=== PATIENT | male | born 1970 | race Two or more races ===

== ENCOUNTER 2022-01-13 23:09 | Observation (INO) | payer MEDICAID, SELFPAY ==
--- NOTE | 2022-01-13 23:04 | ECG_ITS ---
APPROVED REPORT Exam: Resting ECG HR:124 bpm ECG Measurements Heart Rate 124 AXES DE 151 P 72 QRSd 93 QRS 138 QT 295 T 55 QTc 369 Conclusion SINUS TACHYCARDIA WITH FREQUENT VENTRICULAR PREMATURE COMPLEXES INDETERMINATE AXIS LEFT POSTERIOR FASCICULAR BLOCK [QRS AXIS > 109, INFERIOR Q] ABNORMAL ECG UNCONFIRMED REPORT Electronically signed by : Paramjit Ponce MD 01/14/2022 21:01:40
[2022-01-13 23:09] VITALS: BP 141/62; PULSE 129; RESP 20; TEMP 37.5; O2SAT 96; BMI 47.4
[2022-01-13 23:12] VITALS: BMI 47.4
--- NOTE | 2022-01-13 23:19 | XR_ITS ---
PROCEDURE INFORMATION: Exam: XR Chest Exam date and time: 01/13/2022 11:26 PM Age: 51 years old Clinical indication: Sternal or substernal pain; Additional info: Cp TECHNIQUE: Imaging protocol: Radiologic exam of the chest. Views: 2 views. COMPARISON: No relevant prior studies available. FINDINGS: Lungs: Unremarkable. No consolidation. Pleural spaces: Unremarkable. No pleural effusion. No pneumothorax. Heart/Mediastinum: Unremarkable. No cardiomegaly. Bones/joints: Unremarkable. IMPRESSION: No acute cardiopulmonary abnormality.
[2022-01-13 23:25] LABS: Coronavirus 19, PCR Not Detected (NotDetected); Influenza A, PCR Not Detected (NotDetected); Influenza B, PCR Not Detected (NotDetected)
--- NOTE | 2022-01-13 23:27 | PC.NURSE ---
PT RATES CHEST PRESSURE 6/10- NITRO SL GIVEN ORDERED. VS PRIOR TO ADMINISTRATION BP 141/62 PULSE 131 SP02 96%
[2022-01-13 23:29] LABS: Basophils # 0.1 K/mm3 (0-0.2); Basophils % 0.5 % (0.1-2.0); Eosinophils # 0.3 K/mm3 (0.0-0.4); Eosinophils % 1.4 % (0.1-12.0); Hematocrit 43.5 % (42.0-52.0); Hemoglobin 14.9 g/dL (14.1-18.0); Lymphocytes % 9.8 % (10-50); Mean Corpuscular HGB Conc 34.3 g/dL (31.8-35.4); Mean Corpuscular Hemoglobin 30.5 pg (27.0-31.2); Mean Corpuscular Volume 88.9 fl (80-94); Mean Platelet Volume 7.6 fl (7.4-10.4); Neutrophils # 16.9 K/mm3 (1.8-7.8); Neutrophils % 83.4 % (37.0-80.0); Platelet Count 271 K/mm3 (142-424); White Blood Count 20.3 K/mm3 (4.8-10.8)
--- NOTE | 2022-01-13 23:30 | PC.NURSE ---
PT STATES NITRO SL DID RELIEVE HIS CHEST PRESSURE. AWARE.
[2022-01-13 23:32] LABS: Chloride 100 mmol/L (98-107); Sodium 134 mmol/L (136-145)
--- NOTE | 2022-01-13 23:34 | HMH.EDCP ---
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 insulin use: unspecified residential insulin use status Diabetes mellitus complication status: with other specified complication Qualified Code(s): E11.69 - Type 2 diabetes mellitus with other specified complication Obesity Qualifiers: Obesity type: due to excess calories Obesity classification: adult class 3 (BMI >= 40) Serious obesity comorbidity presence: with serious comorbidity Body mass index: BMI 45.0-49.9 Qualified Code(s): E66.01 - Morbid (severe) obesity due to excess calories; Z68.42 - Body mass index [BMI] 45.0-49.9, adult Disposition: Admitted As Inpatient Condition on Discharge: Serious - Critical Care Critical Care Time: No Attestation: On , the high probability of a clinically significant, sudden or life threatening deterioration of the following system(s) required my full and direct attention, intervention and personal management. The time I documented below is in addition to time spent performing reported procedures but includes the following listed in this critical care notation. Medical Decision Making - Medical Records Medical records reviewed: Yes: I reviewed the patient's medical records. - Otto Inquiry Pt receiving controlled substance: No Vital Signs: 01/13/22 23:09 01/13/22 23:50 Temperature 99.5 F Temperature Source Oral Pulse Rate 124 H Pulse Rate [Right] 129 H Respiratory Rate 20 Blood Pressure 109/62 L Blood Pressure [Right Arm] 141/62 H Blood Pressure Mean 80 Blood Pressure Mean [Right Arm] 88 02 Sat by Pulse Oximetry 96 93 L - Lab Data Lab results reviewed: Yes: I reviewed the patient's lab results. Lab Results 01/13/22 23:12: WBC 20.3 H*, RBC 4.90, Hgb 14.9, Hct 43.5, MCV 88.9, MCH 30.5, MCHC 34.3, RDW 13.0, Plt Count 271, MPV 7.6, Neut % (Auto) 83.4 H, Lymph % (Auto) 9.8 L, [place] % (Auto) 5.0, Eos % (Auto) 1.4, Baso % (Auto) 0.5, Neut # (Auto) 16.9 H, Lymph # (Auto) 2.0, [place] # (Auto) 1.0, Eos # (Auto) 0.3, Baso # (Auto) 0.1 01/13/22 23:12: Sodium 134 L, Potassium 4.0, Chloride 100, Carbon Dioxide 25, Anion Gap 13.0, BUN 11, Creatinine 0.50 L, Estimated Creat Clear 169, Estimated GFR 175, Est GFR ( Amer) 212, Glucose 238 H, Calcium 9.7, Troponin I < 0.01, C-Reactive Protein 21.3 H 01/13/22 23:12: Free T4 1.11 01/13/22 23:12: Lactate 2.7 H 01/13/22 23:12: NT-Pro-B Natriuret Pep 56.3 01/13/22 23:22: SARS-CoV-2 (PCR) Not detected, Influenza A Untype (PCR) Not detected, Influenza Type B (PCR) Not detected 01/13/22 23:41: Urine Color Yellow, Urine Appearance Clear, Urine pH 5.0, Ur Specific [place] 1.020, Urine Protein Negative, Urine Glucose (UA) Negative, Urine Ketones Trace, Urine Blood Negative, Urine Nitrate Negative, Urine Bilirubin Negative, Urine Urobilinogen 0.2, Ur Leukocyte Esterase Negative Result diagrams: 01/13/22 23:12 01/13/22 23:12 Orders (Tests/Meds): ED MEDICATIONS Generic Name Dose Route Start Last Admin Trade Name Freq PRN Reason Stop Dose Admin Sodium Chloride 1,000 mls @ 999 mls/hr 01/13/22 23:45 01/13/22 23:43 Sod Chlor 0.9% 1000ml Bag IV 01/14/22 00:45 999 mls/hr .[id number] JULIANA Administration Discontinued Medications Generic Name Dose Route Start Last Admin Trade Name Freq PRN Reason Stop Dose Admin Aspirin 324 mg 01/13/22 23:20 01/13/22 23:26 Aspirin 81mg Chewable Tablet PO 01/13/22 23:21 324 mg ONCE ONE Administration Nitroglycerin 0.4 mg 01/13/22 23:20 01/13/22 23:26 Nitroglycerin 0.4mg Sl Tablet SL 01/13/22 23:21 1 tab ONCE ONE Administration Nitroglycerin 1 gm 01/13/22 23:31 01/13/22 23:33 Nitroglycerin 1 Gm Ointment TD 01/13/22 23:32 1 gm ONCE ONE Administration ORDERS
[2022-01-13 23:35] LABS: Blood Urea Nitrogen 11 mg/dl (9-20); Creatinine Clearance Estimated 169 mL/min (50-200); Estimated Glomerular Filt Rate 175 ml/min (>60); GFR (African American) 212 ML/MIN (>60)
[2022-01-13 23:36] LABS: Calcium 9.7 mg/dl (8.4-10.2); Carbon Dioxide 25 mmol/L (22.0-30.0); Glucose 238 mg/dl (74-100)
[2022-01-13 23:38] LABS: Lactic Acid 2.7 mmol/L (0.7-2.1)
[2022-01-13 23:39] LABS: MANUAL DIFFERENTIAL MANUAL DIFFERENTIAL (MANUAL DIFF)
[2022-01-13 23:41] LABS: C-Reactive Protein 21.3 mg/L (0-4)
[2022-01-13 23:50] VITALS: BP 109/62; PULSE 124; O2SAT 93
[2022-01-13 23:51] LABS: Troponin I < 0.01 ng/ml (0.00-0.034)
[2022-01-13 23:53] LABS: Microscopic, Urine URINE MICROSCOPIC (MICROSCOPIC)
[2022-01-13 23:55] LABS: Free T4 (Free Thyroxine) 1.11 ng/dl (0.78-2.19); NT Pro Brain Natriuretic Pep. 56.3 pg/mL (0-125)
[2022-01-13 23:55] LABS: Appearance,Urine CLEAR (Clear); Bilirubin,Urine Negative (Negative); Blood, Urine Negative (Negative); Color,Urine YELLOW (Yellow); Glucose,Urine (UA) Negative (Negative); Ketones,Urine TRACE (Negative); Leukocyte Esterase,Urine Negative (Negative); Nitrate,Urine Negative (Negative); Protein,Urine Negative (Negative); Urobilinogen,Urine 0.2 EU/dl (0.2)
[2022-01-14] VITALS (27 sets, daily range): BP systolic 99–134; BP diastolic 55–109; PULSE 76–123; RESP 12–24; TEMP 36.4–37.6; O2SAT 90–97; BMI 47.0
[2022-01-14 00:10] LABS: Thyroid Stimulating Hormone 1.32 uIU/mL (0.465-4.68)
[2022-01-14 00:18] LABS: Procalcitonin 0.084 ng/mL (0.0-2.0)
[2022-01-14 00:18] LABS: WBC,Urine Occasional #/hpf (0-3)
[2022-01-14 00:19] LABS: Bacteria,Urine Trace /lpf
[2022-01-14 00:27] LABS: Hypochromasia 1+; Lymphocytes % 7 % (10-50); Monocytes % 5 % (2-9); Neutrophils % 88 % (42-76); Platelet Estimate Normal; Total Cells Counted 100
[2022-01-14 00:32] LABS: Erythrocyte Sedimentation Rate 19 mm/hr (0-20)
[2022-01-14 00:42] LABS: Bilirubin,Unconjugated 0.7 mg/dL (0.0-1.1)
[2022-01-14 00:43] LABS: Alanine Aminotransferase 60 U/L (12-78); Albumin Level 4.6 g/dl (3.5-5.0); Alkaline Phosphatase 106 U/L (38-126); Aspartate Amino Transferase 49 U/L (17-59); Bilirubin,Direct 0.3 mg/dl (0.0-0.4); Bilirubin,Indirect 0.8 mg/dL (0.0-0.9); Bilirubin,Total 1.1 mg/dl (0.2-1.3); Total Protein,Serum 7.7 g/dl (6.3-8.2)
[2022-01-14 02:21] LABS: Reflex Lactic Add Lactic Reflex
[2022-01-14 02:42] LABS: Lactic Acid Follow Up (RFLX 1) 1.7 mmol/L (0.7-2.1)
[2022-01-14 03:03] LABS: Troponin I < 0.01 ng/ml (0.00-0.034)
--- NOTE | 2022-01-14 06:20 | PC.NURSE ---
Pt has rested well since admission. Denies any cp or soa at this time. VSS. Pt ambulating to the bathroom without difficulty. No fever. No acute distress or changes noted at this time. Will continue to monitor.
[2022-01-14 06:32] LABS: Basophils # 0.1 K/mm3 (0-0.2); Basophils % 0.4 % (0.1-2.0); Eosinophils # 0.1 K/mm3 (0.0-0.4); Eosinophils % 0.5 % (0.1-12.0); Hematocrit 37.6 % (42.0-52.0); Lymphocytes # 3.2 K/mm3 (0.7-4.5); Lymphocytes % 18.4 % (10-50); Mean Corpuscular HGB Conc 34.6 g/dL (31.8-35.4); Mean Corpuscular Hemoglobin 31.1 pg (27.0-31.2); Monocytes % 5.6 % (1.7-9.3); Neutrophils # 13.2 K/mm3 (1.8-7.8); Neutrophils % 75.1 % (37.0-80.0); Platelet Count 237 K/mm3 (142-424); Red Blood Count 4.17 M/mm3 (4.60-6.20); Red Cell Distribution Width 13.2 % (11.5-17.5); White Blood Count 17.6 K/mm3 (4.8-10.8)
[2022-01-14 06:40] LABS: INR 1.13 (0.9-1.1); Prothrombin Time 12.7 seconds (10.1-12.5)
[2022-01-14 06:43] LABS: Anion Gap 9.6 mEq/L (5-15); Blood Urea Nitrogen 9 mg/dl (9-20); Calcium 8.2 mg/dl (8.4-10.2); Carbon Dioxide 26 mmol/L (22.0-30.0); Chloride 104 mmol/L (98-107); Creatinine Clearance Estimated 169 mL/min (50-200); Estimated Glomerular Filt Rate 175 ml/min (>60); GFR (African American) 212 ML/MIN (>60); Glucose 204 mg/dl (74-100); Potassium 3.6 mmoL/L (3.5-5.1); Sodium 136 mmol/L (136-145)
[2022-01-14 07:05] LABS: POC Glucose,Bedside 215 (70-110)
[2022-01-14 07:08] LABS: Troponin I < 0.01 ng/ml (0.00-0.034)
--- NOTE | 2022-01-14 07:40 | HMH.PHAINT ---
MEDICATION RECONCILIATION COMPLETED ON PATIENT USING EXTERNAL FILL HISTORY FROM PHARMACY. -JIM PANDA, GALLITOD
--- NOTE | 2022-01-14 07:41 | HMH.PHAVTE ---
[facility] Pharmacy VTE Monitoring - Patient Demographics Admission date: 01/13/22 Report Date: 01/14/22 Time: 07:41 Allergies/Adverse Reactions: Patient Allergies methylprednisolone [From Solu-Medrol] Adverse Reaction (Verified 01/13/22 23:19) Height: 1.73 m Weight: 140.89 kg Patient Problems: Current Active Problems Chest pain (Acute) Diabetes mellitus (Acute) Groin abscess (Acute) Severe sepsis with acute organ dysfunction (Acute) Obesity (Acute) Tobacco use (Acute) - VTE Risk Labs: VTE Related Lab Results Hgb 13.0 g/dL (14.1-18.0) L D 01/14/22 05:40 Hct 37.6 % (42.0-52.0) L 01/14/22 05:40 Plt Count 237 K/mm3 (142-424) 01/14/22 05:40 PT 12.7 seconds (10.1-12.5) H 01/14/22 05:40 INR 1.13 (0.9-1.1) H 01/14/22 05:40 BUN 9 mg/dl (9-20) 01/14/22 05:40 Creatinine 0.50 mg/dl (0.66-1.25) L 01/14/22 05:40 Estimated Creat Clear 169 mL/min (50-200) 01/14/22 05:40 Was VTE Risk Assessment Performed: Yes VTE Score: 4 VTE Risk Level: Low Risk - Prophylaxis VTE Prophylaxis Ordered?: Yes Types of VTE Prophylaxis: TEDS Knee High Location of Applied Device: Bilateral Lower Extremeties
--- NOTE | 2022-01-14 08:00 | CA_ITS ---
APPROVED REPORT EXAM: Comprehensive 2D, Doppler, and color-flow Echocardiogram Brake Drum Lathe Operator: Linda Hearn RT(R) Ht: 5 ft 8 in Wt: 315lbs BSA: 2.48 BP: 109/62 mmHg Indications: severe sepsis, obesity, diabetes, smoker, CP, SOB, HTN Echo Enhancing Agent Indication: Endocardial border delineation Agent(s) / Amount(s) Used: Definity 2 cc 2D Dimensions LVOT 2.18 cm (M/F) 1.5-2.5 M-Mode Dimensions RVDd 3.25 cm (0.9-2.6) LA Diam 2.91 cm (1.9-4.0) LVDd 5.11 cm (3.5-5.7) Ao Diam 3.26 cm (2.0-3.7) LVDs 3.72 cm (3.5-5.7) IVSd 1.00 cm (0.6-1.1) PWd 0.86 cm (0.6-1.1) EF (Teich) 52.70% FS 27.20% EDV (Teich) 124.40 mL ESV (Teich) 58.90 mL LV Diastology E Decel Time 160.00 (160-240 msec) E/A Ratio 0.7 MED E' 6.50 (< 7 cm/sec) E'/MED E' Ratio 7.57 (>14) LAT E' 7.10 (<10 cm/sec) E/LAT E' Ratio 6.93 (>14) Mitral Valve MV E Max Avtar. 49.00 (40-130 cm/s) MV A Velocity 74.00 (40-130 cm/s) E/A Ratio 0.66 MV Decel. Time 160.00 (160-240 ms) MV PHT 47.00 ms Left Ventricle Technically difficult study because of the patient factors and poor acoustic windows. Definity contrast was utilized to delineate the endocardial surfaces. Left atrium is mildly enlarged, left ventricle is normal size mild concentric left ventricular hypertrophy, estimated ejection fraction 50% with no obvious regional wall motion abnormality, grade 1 diastolic dysfunction seen without tissue Doppler evidence of raise left atrial pressure, there is no left ventricular thrombus seen. Right Ventricle Right atrium and right ventricle are mildly enlarged with normal contractility. Aortic Valve Aortic valve is minimally thickened and fibrosed there is no aortic stenosis or aortic insufficiency. Mitral Valve Mitral valve grossly normal, there is trace mitral regurgitation. Tricuspid Valve Tricuspid valve is grossly normal, there is trace tricuspid regurgitation, tricuspid regurgitation jet velocity is inadequate for calculation of the right ventricular systolic pressure. Pulmonic Valve Pulmonic valve is poorly visualized. Great Vessels Aortic root is normal size. Inferior vena cava is poorly visualized. Pericardium No significant pericardial effusion noted. Conclusion 1. Technically difficult study because of the patient factors and poor acoustic windows, Definity contrast was utilized to delineate the endocardial surfaces, normal left ventricular size mild concentric left ventricular hypertrophy, estimated ejection fraction approximately 50% with no regional wall motion abnormality, there is no left ventricular thrombus seen, grade 1 diastolic dysfunction seen without tissue Doppler evidence of raise left atrial pressure. 2. Trace mitral and tricuspid regurgitation. 3. No significant pericardial effusion. 4. Inferior vena cava is poorly visualized. Electronically signed by : Haroon Sawyer MD 01/15/2022 06:05:51
--- NOTE | 2022-01-14 08:34 | PC.NURSE ---
I called to inform surgery of consult; spoke with Geena
--- NOTE | 2022-01-14 08:38 | PC.NURSE ---
notified cardiology of consult
--- NOTE | 2022-01-14 08:42 | HMH.HP ---
*Admission Date: 01/13/22 *Chief complaint: Chest pain [facility] History Medical History: Reports:: Diabetes Mellitus Type 2 Denies:: Cancer, Diabetes Mellitus Type 1, MRSA *Have you ever received a pneumonia vaccine?: No *Have you received a flu vaccine this season?: Yes Other Surgeries: Yes: Hernia Repair Amputation: No - *Social History Smoking Status: Current every day smoker # Packs/Day (cigarettes): 1 Alcohol Intake: never *Occupational Status:: employed Housing: house *Travel in the last 8 weeks: None Family Hx:: Diabetes, Heart Attack Review of Systems - *Neurologic Denies localized weakness, Denies headache(s) Meds Home Medications Medication Instructions Recorded Confirmed Type Furosemide [Furosemide 40MG tAB*] 40 mg PO DAILY 01/13/22 01/13/22 History Insulin Glargine,Hum.rec.anlog 20 units SQ 01/13/22 01/13/22 History [Lantus Solostar 100 Units/mL 3mL flexpen] Metformin HCl [Metformin 1000mg 1,000 mg PO BID 01/13/22 01/13/22 History Tablets] Omeprazole [Omeprazole 20mg 20 mg PO DAILY 01/13/22 01/13/22 History Capsule] Simvastatin 20 mg PO HS 01/13/22 01/14/22 History lisinopriL [Lisinopril] 10 mg PO DAILY 01/13/22 01/13/22 History Allergies Allergy/AdvReac Type Severity Reaction Status Date / Time methylprednisolone AdvReac Verified 01/13/22 23:19 [From Solu-Medrol] Exam Vital signs and Labs for Last 24 Hours: Temp Pulse Resp BP Pulse Ox 99.6 F 100 H 24 118/76 91 L 01/14/22 03:43 01/14/22 03:43 01/14/22 03:43 01/14/22 03:43 01/14/22 03:43 Laboratory Results - last 24 hr 01/13/22 23:12: WBC 20.3 H*, RBC 4.90, Hgb 14.9, Hct 43.5, MCV 88.9, MCH 30.5, MCHC 34.3, RDW 13.0, Plt Count 271, MPV 7.6, Neut % (Auto) 83.4 H, Lymph % (Auto) 9.8 L, [place] % (Auto) 5.0, Eos % (Auto) 1.4, Baso % (Auto) 0.5, Neut # (Auto) 16.9 H, Lymph # (Auto) 2.0, [place] # (Auto) 1.0, Eos # (Auto) 0.3, Baso # (Auto) 0.1, Total Counted 100, Neutrophils % (Manual) 88 H, Lymphocytes % (Manual) 7 L, Monocytes % (Manual) 5, Platelet Estimate Normal, Hypochromasia 1+, ESR 19 01/13/22 23:12: Sodium 134 L, Potassium 4.0, Chloride 100, Carbon Dioxide 25, Anion Gap 13.0, BUN 11, Creatinine 0.50 L, Estimated Creat Clear 169, Estimated GFR 175, Est GFR ( Amer) 212, Glucose 238 H, Calcium 9.7, Troponin I < 0.01, C-Reactive Protein 21.3 H, Procalcitonin 0.084, TSH 1.32 01/13/22 23:12: Free T4 1.11 01/13/22 23:12: Lactate 2.7 H 01/13/22 23:12: Hemoglobin A1c 9.0 H 01/13/22 23:12: NT-Pro-B Natriuret Pep 56.3 01/13/22 23:12: Total Bilirubin 1.1, Direct Bilirubin 0.3, Conjugated Bilirubin 0.0, Indirect Bilirubin 0.8, Unconjugated Bilirubin 0.7, AST 49, ALT 60, Alkaline Phosphatase 106, Total Protein 7.7, Albumin 4.6 01/13/22 23:22: SARS-CoV-2 (PCR) Not detected, Influenza A Untype (PCR) Not detected, Influenza Type B (PCR) Not detected 01/13/22 23:41: Urine Color Yellow, Urine Appearance Clear, Urine pH 5.0, Ur Specific [place] 1.020, Urine Protein Negative, Urine Glucose (UA) Negative, Urine Ketones Trace, Urine Blood Negative, Urine Nitrate Negative, Urine Bilirubin Negative, Urine Urobilinogen 0.2, Ur Leukocyte Esterase Negative, Urine WBC Occasional, Ur Squamous Epith Cells 3-5, Urine Bacteria Trace 01/14/22 02:30: Troponin I < 0.01 01/14/22 02:30: Lactate 1.7 01/14/22 05:40: Troponin I < 0.01 01/14/22 05:40: WBC 17.6 H, RBC 4.17 L, Hgb 13.0 L D, Hct 37.6 L, MCV 90.0, MCH 31.1, MCHC 34.6, RDW 13.2, Plt Count 237, MPV 8.0, Neut % (Auto) 75.1, Lymph % (Auto) 18.4, [place] % (Auto) 5.6, Eos % (Auto) 0.5, Baso % (Auto) 0.4, Neut # (Auto) 13.2 H, Lymph # (Auto) 3.2, [place] # (Auto) 1.0, Eos # (Auto) 0.1, Baso # (Auto) 0.1 01/14/22 05:40: PT 12.7 H, INR 1.13 H 01/14/22 05:40: Sodium 136, Potassium 3.6, Chloride 104, Carbon Dioxide 26, Anion Gap 9.6, BUN 9, Creatinine 0.50 L, Estimated Creat Clear 169, Estimated GFR 175, Est GFR ( Amer) 212, Glucose 204 H, Calcium 8.2 L 01/14/22 06:57: POC Glucose 215 H I & O
--- NOTE | 2022-01-14 08:58 | HMH.PHACONS ---
- Pharmacy Consult Date: 01/14/22 Time: 08:58 Referring provider: DR. RUFF Reason for Consult:: VANCOMYCIN DOSING Allergies and ADEs:: Allergies Allergy/AdvReac Type Severity Reaction Status Date / Time methylprednisolone AdvReac Verified 01/13/22 23:19 [From Solu-Medrol] Home Medications:: Home Medications Medication Instructions Recorded Confirmed Type Furosemide [Furosemide 40MG tAB*] 40 mg PO DAILY 01/13/22 01/13/22 History Insulin Glargine,Hum.rec.anlog 20 units SQ 01/13/22 01/13/22 History [Lantus Solostar 100 Units/mL 3mL flexpen] Metformin HCl [Metformin 1000mg 1,000 mg PO BID 01/13/22 01/13/22 History Tablets] Omeprazole [Omeprazole 20mg 20 mg PO DAILY 01/13/22 01/13/22 History Capsule] Simvastatin 20 mg PO HS 01/13/22 01/14/22 History lisinopriL [Lisinopril] 10 mg PO DAILY 01/13/22 01/13/22 History Height: 1.73 m Weight: 140.89 kg Laboratory Results:: Laboratory Results - last 24 hr 01/13/22 23:12: WBC 20.3 H*, RBC 4.90, Hgb 14.9, Hct 43.5, MCV 88.9, MCH 30.5, MCHC 34.3, RDW 13.0, Plt Count 271, MPV 7.6, Neut % (Auto) 83.4 H, Lymph % (Auto) 9.8 L, [place] % (Auto) 5.0, Eos % (Auto) 1.4, Baso % (Auto) 0.5, Neut # (Auto) 16.9 H, Lymph # (Auto) 2.0, [place] # (Auto) 1.0, Eos # (Auto) 0.3, Baso # (Auto) 0.1, Total Counted 100, Neutrophils % (Manual) 88 H, Lymphocytes % (Manual) 7 L, Monocytes % (Manual) 5, Platelet Estimate Normal, Hypochromasia 1+, ESR 19 01/13/22 23:12: Sodium 134 L, Potassium 4.0, Chloride 100, Carbon Dioxide 25, Anion Gap 13.0, BUN 11, Creatinine 0.50 L, Estimated Creat Clear 169, Estimated GFR 175, Est GFR ( Amer) 212, Glucose 238 H, Calcium 9.7, Troponin I < 0.01, C-Reactive Protein 21.3 H, Procalcitonin 0.084, TSH 1.32 01/13/22 23:12: Free T4 1.11 01/13/22 23:12: Lactate 2.7 H 01/13/22 23:12: Hemoglobin A1c 9.0 H 01/13/22 23:12: NT-Pro-B Natriuret Pep 56.3 01/13/22 23:12: Total Bilirubin 1.1, Direct Bilirubin 0.3, Conjugated Bilirubin 0.0, Indirect Bilirubin 0.8, Unconjugated Bilirubin 0.7, AST 49, ALT 60, Alkaline Phosphatase 106, Total Protein 7.7, Albumin 4.6 01/13/22 23:22: SARS-CoV-2 (PCR) Not detected, Influenza A Untype (PCR) Not detected, Influenza Type B (PCR) Not detected 01/13/22 23:41: Urine Color Yellow, Urine Appearance Clear, Urine pH 5.0, Ur Specific [place] 1.020, Urine Protein Negative, Urine Glucose (UA) Negative, Urine Ketones Trace, Urine Blood Negative, Urine Nitrate Negative, Urine Bilirubin Negative, Urine Urobilinogen 0.2, Ur Leukocyte Esterase Negative, Urine WBC Occasional, Ur Squamous Epith Cells 3-5, Urine Bacteria Trace 01/14/22 02:30: Troponin I < 0.01 01/14/22 02:30: Lactate 1.7 01/14/22 05:40: Troponin I < 0.01 01/14/22 05:40: WBC 17.6 H, RBC 4.17 L, Hgb 13.0 L D, Hct 37.6 L, MCV 90.0, MCH 31.1, MCHC 34.6, RDW 13.2, Plt Count 237, MPV 8.0, Neut % (Auto) 75.1, Lymph % (Auto) 18.4, [place] % (Auto) 5.6, Eos % (Auto) 0.5, Baso % (Auto) 0.4, Neut # (Auto) 13.2 H, Lymph # (Auto) 3.2, [place] # (Auto) 1.0, Eos # (Auto) 0.1, Baso # (Auto) 0.1 01/14/22 05:40: PT 12.7 H, INR 1.13 H 01/14/22 05:40: Sodium 136, Potassium 3.6, Chloride 104, Carbon Dioxide 26, Anion Gap 9.6, BUN 9, Creatinine 0.50 L, Estimated Creat Clear 169, Estimated GFR 175, Est GFR ( Amer) 212, Glucose 204 H, Calcium 8.2 L 01/14/22 06:57: POC Glucose 215 H Medical History: Reports:: Diabetes Mellitus Type 2 Denies:: Cancer, Diabetes Mellitus Type 1, MRSA Assessment and Plan - Assessment and plan all Dx Assessment and Plan for all problems:: Age: 51 yo Serum creatinine: 0.5 mg/dL Height: 68.1 Inches Weight (kg): 140 Assessment: IBW (kg): 68.63 Dosing wt(kg): 140 Estimated Creatinine clearance (ml/min): 130 Clearance limited to 130 ml/min to reduce risk of overdosing. CRCL method: Cockcroft and Gault using ibw(default). Drug selected: Vancomycin Loading dose (mg): 0 Vd (liters): 112.0 (factor used: 0.8 L/k
--- NOTE | 2022-01-14 10:23 | HMH.CNCARD ---
History of Present Illness Consult date: 01/14/22 Requesting physician: Manas Zamora Consult reason: chest pain Chief complaint: Left groin abscess, sepsis, atypical chest pain Additional Medical History:: Past Medical Hx DM HLD HTN History of present illness: 51 year old male with past medical hx as above presented to ED with complaint of fever of 101 at home, chest tightness, and a warm sensation across chest. Denied any soa. also requested boil to left inner thigh be looked at. Upon presentation EKG showed sinus tach with pvc at rate of 124 no evidence of acute ischemia. WBC was 20.3. Trops all negative, no further chest pain. chest x-ray negative for acute process. [facility] History Medical History: Reports:: Diabetes Mellitus Type 2, Hypertension Denies:: Cancer, Diabetes Mellitus Type 1, MRSA *Have you ever received a pneumonia vaccine?: No *Have you received a flu vaccine this season?: Yes Other Surgeries: Yes: Hernia Repair Amputation: No - *Social History Smoking Status: Current every day smoker # Packs/Day (cigarettes): 1 Alcohol Intake: never *Occupational Status:: employed Housing: house *Travel in the last 8 weeks: None Family Hx:: Diabetes, Heart Attack Meds Home Medications Medication Instructions Recorded Confirmed Type Furosemide [Furosemide 40MG tAB*] 40 mg PO DAILY 01/13/22 01/13/22 History Insulin Glargine,Hum.rec.anlog 20 units SQ 01/13/22 01/13/22 History [Lantus Solostar 100 Units/mL 3mL flexpen] Metformin HCl [Metformin 1000mg 1,000 mg PO BID 01/13/22 01/13/22 History Tablets] Omeprazole [Omeprazole 20mg 20 mg PO DAILY 01/13/22 01/13/22 History Capsule] Simvastatin 20 mg PO HS 01/13/22 01/14/22 History lisinopriL [Lisinopril] 10 mg PO DAILY 01/13/22 01/13/22 History Allergies Allergy/AdvReac Type Severity Reaction Status Date / Time methylprednisolone AdvReac Verified 01/13/22 23:19 [From Solu-Medrol] Exam Vital signs and Labs for Last 24 Hours: Temp Pulse Resp BP Pulse Ox 98.3 F 94 H 20 101/57 L 94 L 01/14/22 08:00 01/14/22 08:00 01/14/22 08:00 01/14/22 08:00 01/14/22 08:00 Laboratory Results - last 24 hr 01/13/22 23:12: WBC 20.3 H*, RBC 4.90, Hgb 14.9, Hct 43.5, MCV 88.9, MCH 30.5, MCHC 34.3, RDW 13.0, Plt Count 271, MPV 7.6, Neut % (Auto) 83.4 H, Lymph % (Auto) 9.8 L, [place] % (Auto) 5.0, Eos % (Auto) 1.4, Baso % (Auto) 0.5, Neut # (Auto) 16.9 H, Lymph # (Auto) 2.0, [place] # (Auto) 1.0, Eos # (Auto) 0.3, Baso # (Auto) 0.1, Total Counted 100, Neutrophils % (Manual) 88 H, Lymphocytes % (Manual) 7 L, Monocytes % (Manual) 5, Platelet Estimate Normal, Hypochromasia 1+, ESR 19 01/13/22 23:12: Sodium 134 L, Potassium 4.0, Chloride 100, Carbon Dioxide 25, Anion Gap 13.0, BUN 11, Creatinine 0.50 L, Estimated Creat Clear 169, Estimated GFR 175, Est GFR ( Amer) 212, Glucose 238 H, Calcium 9.7, Troponin I < 0.01, C-Reactive Protein 21.3 H, Procalcitonin 0.084, TSH 1.32 01/13/22 23:12: Free T4 1.11 01/13/22 23:12: Lactate 2.7 H 01/13/22 23:12: Hemoglobin A1c 9.0 H 01/13/22 23:12: NT-Pro-B Natriuret Pep 56.3 01/13/22 23:12: Total Bilirubin 1.1, Direct Bilirubin 0.3, Conjugated Bilirubin 0.0, Indirect Bilirubin 0.8, Unconjugated Bilirubin 0.7, AST 49, ALT 60, Alkaline Phosphatase 106, Total Protein 7.7, Albumin 4.6 01/13/22 23:22: SARS-CoV-2 (PCR) Not detected, Influenza A Untype (PCR) Not detected, Influenza Type B (PCR) Not detected 01/13/22 23:41: Urine Color Yellow, Urine Appearance Clear, Urine pH 5.0, Ur Specific [place] 1.020, Urine Protein Negative, Urine Glucose (UA) Negative, Urine Ketones Trace, Urine Blood Negative, Urine Nitrate Negative, Urine Bilirubin Negative, Urine Urobilinogen 0.2, Ur Leukocyte Esterase Negative, Urine WBC Occasional, Ur Squamous Epith Cells 3-5, Urine Bacteria Trace 01/14/22 02:30: Troponin I < 0.01 01/14/22 02:30: Lactate 1.7 01/14/22 05:40: Troponin I < 0.01 01/14/22 05:40: WBC 17.6 H, RBC 4.17 L,
[2022-01-14 11:34] LABS: POC Glucose,Bedside 230 (70-110)
--- NOTE | 2022-01-14 11:39 | HMH.GSCON ---
*Admission Date: 01/13/22 *Reason for consult:: Left medial thigh abscess *History of present illness: This is a 51-year-old gentleman seen in consultation Dr. Zamora for evaluation regarding a left medial thigh abscess. During evaluation for chest pain he noted a developing abscess along the left medial thigh. He states that over the past few days or so (the area) has gotten more tender and more swollen . Review of Systems - Constitutional Denies chills - Integumentary/Breasts Reports boil - *Neurologic Denies localized weakness, Denies headache(s) [facility] History Medical History: Reports:: Diabetes Mellitus Type 2, Hypertension Denies:: Cancer, Diabetes Mellitus Type 1, MRSA *Have you ever received a pneumonia vaccine?: No *Have you received a flu vaccine this season?: Yes Other Surgeries: Yes: Hernia Repair Amputation: No - *Social History Smoking Status: Current every day smoker # Packs/Day (cigarettes): 1 Alcohol Intake: never *Occupational Status:: employed Housing: house *Travel in the last 8 weeks: None Family Hx:: Diabetes, Heart Attack Meds Home Medications Medication Instructions Recorded Confirmed Type Furosemide [Furosemide 40MG tAB*] 40 mg PO DAILY 01/13/22 01/13/22 History Insulin Glargine,Hum.rec.anlog 20 units SQ 01/13/22 01/13/22 History [Lantus Solostar 100 Units/mL 3mL flexpen] Metformin HCl [Metformin 1000mg 1,000 mg PO BID 01/13/22 01/13/22 History Tablets] Omeprazole [Omeprazole 20mg 20 mg PO DAILY 01/13/22 01/13/22 History Capsule] Simvastatin 20 mg PO 01/13/22 01/14/22 History lisinopriL [Lisinopril] 10 mg PO DAILY 01/13/22 01/13/22 History Allergies Allergy/AdvReac Type Severity Reaction Status Date / Time methylprednisolone AdvReac Verified 01/13/22 23:19 [From Solu-Medrol] Exam Vital signs and Labs for Last 24 Hours: Temp Pulse Resp BP Pulse Ox 98.3 F 94 H 20 101/57 L 94 L 01/14/22 08:00 01/14/22 08:00 01/14/22 08:00 01/14/22 08:00 01/14/22 08:00 Laboratory Results - last 24 hr 01/13/22 23:12: WBC 20.3 H*, RBC 4.90, Hgb 14.9, Hct 43.5, MCV 88.9, MCH 30.5, MCHC 34.3, RDW 13.0, Plt Count 271, MPV 7.6, Neut % (Auto) 83.4 H, Lymph % (Auto) 9.8 L, [place] % (Auto) 5.0, Eos % (Auto) 1.4, Baso % (Auto) 0.5, Neut # (Auto) 16.9 H, Lymph # (Auto) 2.0, [place] # (Auto) 1.0, Eos # (Auto) 0.3, Baso # (Auto) 0.1, Total Counted 100, Neutrophils % (Manual) 88 H, Lymphocytes % (Manual) 7 L, Monocytes % (Manual) 5, Platelet Estimate Normal, Hypochromasia 1+, ESR 19 01/13/22 23:12: Sodium 134 L, Potassium 4.0, Chloride 100, Carbon Dioxide 25, Anion Gap 13.0, BUN 11, Creatinine 0.50 L, Estimated Creat Clear 169, Estimated GFR 175, Est GFR ( Amer) 212, Glucose 238 H, Calcium 9.7, Troponin I < 0.01, C-Reactive Protein 21.3 H, Procalcitonin 0.084, TSH 1.32 01/13/22 23:12: Free T4 1.11 01/13/22 23:12: Lactate 2.7 H 01/13/22 23:12: Hemoglobin A1c 9.0 H 01/13/22 23:12: NT-Pro-B Natriuret Pep 56.3 01/13/22 23:12: Total Bilirubin 1.1, Direct Bilirubin 0.3, Conjugated Bilirubin 0.0, Indirect Bilirubin 0.8, Unconjugated Bilirubin 0.7, AST 49, ALT 60, Alkaline Phosphatase 106, Total Protein 7.7, Albumin 4.6 01/13/22 23:22: SARS-CoV-2 (PCR) Not detected, Influenza A Untype (PCR) Not detected, Influenza Type B (PCR) Not detected 01/13/22 23:41: Urine Color Yellow, Urine Appearance Clear, Urine pH 5.0, Ur Specific [place] 1.020, Urine Protein Negative, Urine Glucose (UA) Negative, Urine Ketones Trace, Urine Blood Negative, Urine Nitrate Negative, Urine Bilirubin Negative, Urine Urobilinogen 0.2, Ur Leukocyte Esterase Negative, Urine WBC Occasional, Ur Squamous Epith Cells 3-5, Urine Bacteria Trace 01/14/22 02:30: Troponin I < 0.01 01/14/22 02:30: Lactate 1.7 01/14/22 05:40: Troponin I < 0.01 01/14/22 05:40: WBC 17.6 H, RBC 4.17 L, Hgb 13.0 L D, Hct 37.6 L, MCV 90.0, MCH 31.1, MCHC 34.6, RDW 13.2, Plt Count 237, MPV 8.0, Neut % (Auto) 75.1, Lymph % (Auto) 18.4, Mon
--- NOTE | 2022-01-14 11:48 | HMH.HP ---
*Admission Date: 01/13/22 <Adeline Oswald 01/14/22 11:58> *Chief complaint: chest pain; left groin abscess <Adeline Oswald 01/14/22 11:58> *History of present illness: Mr. Spann is a 51-year-old male with a history of type 2 diabetes mellitus and hypertension who presented to [facility] with a fever as high as 101 at home. He describes some left groin discomfort and feels he has an abscess in this area. He also experienced some chest tightness across the entire anterior chest with a warm sensation. He denied having any shortness of breath nausea or vomiting. With evaluation in the emergency room EKG showed a sinus tach with PVCs at a rate of 124 with no evidence of ischemia. White blood cell count was noted to be 20,300. Troponins were all negative. Chest x-ray was negative for an acute process. He received a liter of IV fluids and was given aspirin and a nitroglycerin tablet at which time his pain subsided. He was also placed on nitroglycerin paste. Echo has been completed with pending results. <Adeline Oswald 01/14/22 12:10> [facility] History Medical History: Reports:: Diabetes Mellitus Type 2, Gastroesophageal Reflux Disease(GERD), Hypertension Denies:: Cancer, Diabetes Mellitus Type 1, MRSA <Adeline Oswald 01/14/22 12:10> *Have you ever received a pneumonia vaccine?: No <OswaldAdeline 01/14/22 11:58> *Have you received a flu vaccine this season?: Yes <MarrgetAdeline 01/14/22 11:58> Other Surgeries: Yes: Hernia Repair <OswaldAdeline 01/14/22 11:58> Amputation: No <MargretAdeline 01/14/22 11:58> - *Social History Smoking Status: Current every day smoker <MargretAdeline 01/14/22 11:58> # Packs/Day (cigarettes): 1 <MargretAdeline 01/14/22 11:58> Alcohol Intake: never <MargretAdeline 01/14/22 11:58> *Occupational Status:: employed <Adeline Oswald 01/14/22 11:58> Housing: house <Adeline Oswald 01/14/22 11:58> *Travel in the last 8 weeks: None <Adeline Oswald 01/14/22 11:58> Family Hx:: Diabetes, Heart Attack <Adeline Oswald 01/14/22 11:58> Review of Systems - Constitutional Reports fever(s) <Adeline Oswald 01/14/22 12:10> - Eyes Denies change in vision <Adeline Oswald 01/14/22 12:10> - ENT Denies dizziness, Denies ear pain, Denies sore throat <Adeline Oswald 01/14/22 12:10> - *Cardiovascular Reports chest pain, Denies shortness of breath, Denies generalized swelling, Denies rapid, pounding, or irregular heartbeat <Adeline Oswald 01/14/22 12:10> - *Respiratory Denies chest congestion, Denies cough, Denies shortness of breath <Adeline Oswald 01/14/22 12:10> - *Gastrointestinal Denies abdominal pain, Denies change in bowel habits, Denies heartburn, Denies vomiting blood, Denies bright, red blood in stools, Denies nausea, Denies vomiting <Adeline Oswald 01/14/22 12:10> - *Genitourinary Denies difficulty urinating <Adeline Oswald 01/14/22 12:10> - *Musculoskeletal Reports joint pain (back), Denies abnormal walking <Adeline Oswald 01/14/22 12:10> - *Neurologic Denies localized weakness, Denies headache(s), Denies seizure-like activity <Adeline Oswald 01/14/22 12:10> Meds Home Medications Medication Instructions Recorded Confirmed Type Furosemide [Furosemide 40MG tAB*] 40 mg PO DAILY 01/13/22 01/13/22 History Insulin Glargine,Hum.rec.anlog 20 units SQ HS 01/13/22 01/13/22 History [Lantus Solostar 100 Units/mL 3mL flexpen] Metformin HCl [Metformin 1000mg 1,000 mg PO BID 01/13/22 01/13/22 History Tablets] Omeprazole [Omeprazole 20mg 20 mg PO DAILY 01/13/22 01/13/22 History Capsule] Simvastatin 20 mg PO HS 01/13/22 01/14/22 History lisinopriL [Lisinopril] 10 mg PO DAILY 01/13/22 01/13/22 History <Manas Zamora - 01/14/22 13:56> Allergies Allergy/AdvReac Type Severity Reaction Status Date / Time methylprednisolone AdvReac Verified 01/13/22 23:19 [From Solu-Medrol] <Manas Zamora
--- NOTE | 2022-01-14 14:17 | PC.NURSE ---
pt off floor for procedure
--- NOTE | 2022-01-14 15:13 | P.OP_ITS ---
Date of procedure: 01/14/22 Pre-op Diagnosis:: Left medial thigh abscess Post-op Diagnosis:: Same Procedure performed:: Incision and drainage of left medial thigh abscess Surgeon:: Tin Walker MD [employer]LECT[employer] ASSEMBLER:: Sohail Evans Anesthesia: LMA Estimated blood loss (mL): 10 Operative findings:: Complex deep subcutaneous abscess along the proximal medial left thigh/groin Operative note:: After informed consent was obtained the patient was taken to the operating room and placed in the supine position. General anesthesia with laryngeal mask airway was achieved. His left medial thigh/groin was prepped and draped in a sterile fashion. An elliptical incision around the central portion of the palpable abnormality was created with electrocautery. The deep subcutaneous tissue was dissected with electrocautery. A complex deep abscess was encountered. Fluid was obtained for gram stain/culture. The abscess had moderate posterior/inferior tracking and increased anterior/cephalad tracking. Once thoroughly evacuated the wound was packed with Kerlix. The entire region was infiltrated with 1% lidocaine. Dressings were applied and the patient was transferred to recovery in stable condition. Condition: stable Disposition: PACU Specimens:: Fluid for gram stain/culture Complications:: No immediate
--- NOTE | 2022-01-14 15:16 | HMH.ANESCL ---
[facility] Anesthesia Checklist - Structural Data Admitted From: Inpatient Planned Operative Procedure/s: i/d groin abcess Consent for Planned Operative Procedure(s) Verified: Yes - Airway Assessment C-Spine Mobility Assessed: Yes TMJ Mobility Assessed: Yes Dentition: Poor Dentition - Neurological Assessment Level of Consciousness: Awake, Alert, Appropriate - Anesthesia Plan Anesthesia Risk discussed: Yes Anesthesia Plan: Verified ASA Class: III Anesthesia Type: General [facility] History I have reviewed the patient's past medical history: Yes Medical History: Reports:: Diabetes Mellitus Type 2, Gastroesophageal Reflux Disease(GERD), Hypertension Denies:: Cancer, Diabetes Mellitus Type 1, MRSA *Have you ever received a pneumonia vaccine?: No *Have you received a flu vaccine this season?: Yes Anesthesia experience/problems:: none Other Surgeries: Yes: Hernia Repair Amputation: No - *Social History Smoking Status: Current every day smoker # Packs/Day (cigarettes): 1 Alcohol Intake: never Substance Use Type: denies use *Occupational Status:: employed Housing: house *Travel in the last 8 weeks: None Family Hx:: Diabetes, Heart Attack
--- NOTE | 2022-01-14 15:17 | P.PN_ITS ---
[facility] Anesthesia Record Part I Intake, IV Amount: 500 Estimated blood loss (mL): 0 Urine output (mL): 0 Blood Pressure: 134/74 SaO2: 94 Pulse Rate: 86 Respiratory Rate: 12 Temperature: 98.3 F Patient is:: Awake, Stable Stable to PACU at:: 15:10
[2022-01-14 15:25] LABS: POC Glucose,Bedside 187 (70-110)
--- NOTE | 2022-01-14 15:42 | PC.NURSE ---
1520-fsbs checked with results of 187-stranner aware and no further orders 1538-detailed report called to Marilee,RN 1541-pt tranpsorted to 2nd floor per FAVIO Smith and Diana,ST, pt stable upon discharge from pacu, vss
[2022-01-14 17:17] LABS: POC Glucose,Bedside 224 (70-110)
--- NOTE | 2022-01-14 17:18 | PC.NURSE ---
pt A&OX4. surgical incision to left medial thigh, dressing in place, CDI. pt has not complained of pain. tolerating regular diet well. ambulating independently.
[2022-01-14 21:44] LABS: POC Glucose,Bedside 393 (70-110)
[2022-01-15] VITALS (7 sets, daily range): BP systolic 107–132; BP diastolic 61–90; PULSE 77–89; RESP 15–19; TEMP 36.5–36.9; O2SAT 92–96; BMI 47.0
--- NOTE | 2022-01-15 06:11 | PC.NURSE ---
pt awake most of the night, dressing to groin/perineal area intact with small to moderate amount of drainage noted, dr miranda in this morning to see patient and stated he was ok for patient to go home if he can manage his dressing changes at least twice a day at home and follow up in a week with him, pt is wanting to go home today, VSS, telemetry reveals NSR, pt on room air with sats 96%; no other issues or concerns at this time.
--- NOTE | 2022-01-15 06:37 | P.PN_ITS ---
Subjective Patient reports: no new complaints Progress Note: A&P (1) Atypical chest pain Status: Acute (2) Hypertension Status: Acute (3) Hyperlipidemia Status: Acute (4) Diabetes mellitus Status: Acute (5) Abscess of left thigh Status: Acute Assessment and plan: Overall, doing well status post incision and drainage of deep complex left medial thigh/groin abscess. Antibiotics as per primary service Dry dressing changes Exam Vital signs and Labs for Last 24 Hours: Temp Pulse Resp BP Pulse Ox 97.8 F 89 19 107/65 L 96 01/15/22 04:00 01/15/22 04:00 01/15/22 04:00 01/15/22 04:00 01/15/22 04:00 Laboratory Results - last 24 hr 01/14/22 05:40: Troponin I < 0.01 01/14/22 05:40: WBC 17.6 H, RBC 4.17 L, Hgb 13.0 L D, Hct 37.6 L, MCV 90.0, MCH 31.1, MCHC 34.6, RDW 13.2, Plt Count 237, MPV 8.0, Neut % (Auto) 75.1, Lymph % (Auto) 18.4, [place] % (Auto) 5.6, Eos % (Auto) 0.5, Baso % (Auto) 0.4, Neut # (Auto) 13.2 H, Lymph # (Auto) 3.2, [place] # (Auto) 1.0, Eos # (Auto) 0.1, Baso # (Auto) 0.1 01/14/22 05:40: PT 12.7 H, INR 1.13 H 01/14/22 05:40: Sodium 136, Potassium 3.6, Chloride 104, Carbon Dioxide 26, Anion Gap 9.6, BUN 9, Creatinine 0.50 L, Estimated Creat Clear 169, Estimated GFR 175, Est GFR ( Amer) 212, Glucose 204 H, Calcium 8.2 L 01/14/22 06:57: POC Glucose 215 H 01/14/22 11:13: POC Glucose 230 H 01/14/22 15:17: POC Glucose 187 H 01/14/22 16:39: POC Glucose 224 H 01/14/22 20:45: POC Glucose 393 H* I & O for Last 24 hours: Intake & Output 07/01/13/22 01/14/22 01/15/22 11:59 11:59 11:59 11:59 Intake Total 516 / 516 980 / 980 Balance 516 / 516 980 / 980 Weight 310 lb 9.748 oz 310 lb Microbiology Reports for the Last 24 Hours: Microbiology 01/14/22 14:58 Groin - Left Gram Stain - Final - Constitutional no acute distress - *Routine Respiratory Exam Absent: respiratory distress - *Routine Cardiovascular Exam Absent: tachycardia - *Routine Skin Exam Comments: Dressing in place. No spreading cellulitis.
[2022-01-15 06:53] LABS: POC Glucose,Bedside 240 (70-110)
--- NOTE | 2022-01-15 07:15 | HMH.ANESII ---
[facility] Anesthesia Record Part II Discharge Time: 15:40 Destination: Medical Surgical Department PACU nurse assessment reviewed?: Yes Patient Condition:: Good Anesthesia Complications:: None Swallowing reflex intact?: Yes Cyanosis?: No Blood Pressure: 132/61 Pulse Rate: 87 Temperature: 97.8 F Mental Status: Alert & Oriented Pain level:: 0 Nausea and/or vomitting:: None Intake, IV Amount: 0
--- NOTE | 2022-01-15 08:45 | HMH.ACPN2 ---
Internal Medicine - PN: Subj *Date: 01/15/22 *Time: 08:47 Interval history: Feeling better this morning. States his leg is sore . Morning labs pending Exam Vital signs and Labs for Last 24 Hours: Temp Pulse Resp BP Pulse Ox 97.7 F 80 19 110/65 92 L 01/15/22 07:56 01/15/22 07:58 01/15/22 07:56 01/15/22 07:56 01/15/22 07:56 Laboratory Results - last 24 hr 01/14/22 11:13: POC Glucose 230 H 01/14/22 15:17: POC Glucose 187 H 01/14/22 16:39: POC Glucose 224 H 01/14/22 20:45: POC Glucose 393 H* 01/15/22 06:32: POC Glucose 240 H I & O for Last 24 hours: Intake & Output 01/12/22 01/13/22 01/14/22 01/15/22 11:59 11:59 11:59 11:59 Intake Total 516 / 516 2378 / 2378 Balance 516 / 516 2378 / 2378 Weight 310 lb 9.748 oz 310 lb Microbiology Reports for the Last 24 Hours: Microbiology 01/14/22 14:58 Groin - Left Gram Stain - Final Narrative: Alert and oriented. Lungs are clear. Heart is distant but regular.. Blood sugars have been running high. Assessment and Plan (1) Abscess of left thigh Status: Acute Category: Medical Code(s): L02.416 - Cutaneous abscess of left lower limb (2) Atypical chest pain Status: Acute Category: Medical Code(s): R07.89 - Other chest pain (3) Hypertension Status: Acute Category: Medical Code(s): I10 - Essential (primary) hypertension (4) Hyperlipidemia Status: Acute Category: Medical Code(s): E78.5 - Hyperlipidemia, unspecified (5) Diabetes mellitus Status: Acute Category: Medical Code(s): E11.9 - Type 2 diabetes mellitus without complications - Assessment and plan all Dx Assessment and Plan for all problems:: Check CBC this morning. Awaiting surgical cultures. Resume home medications. Nursing staff to instruct patient on dressing changes. Possible discharge home later today.
[2022-01-15 09:22] LABS: Basophils % 0.1 % (0.1-2.0); Eosinophils # 0.1 K/mm3 (0.0-0.4); Eosinophils % 0.4 % (0.1-12.0); Hematocrit 36.7 % (42.0-52.0); Hemoglobin 12.7 g/dL (14.1-18.0); Lymphocytes % 12.9 % (10-50); Mean Corpuscular HGB Conc 34.5 g/dL (31.8-35.4); Mean Corpuscular Hemoglobin 31.2 pg (27.0-31.2); Mean Corpuscular Volume 90.5 fl (80-94); Mean Platelet Volume 7.8 fl (7.4-10.4); Monocytes # 0.8 K/mm3 (0.1-1.0); Monocytes % 4.9 % (1.7-9.3); Neutrophils # 12.5 K/mm3 (1.8-7.8); Neutrophils % 81.7 % (37.0-80.0); Platelet Count 240 K/mm3 (142-424); Red Blood Count 4.06 M/mm3 (4.60-6.20); Red Cell Distribution Width 12.9 % (11.5-17.5); White Blood Count 15.3 K/mm3 (4.8-10.8)
[2022-01-15 09:47] LABS: MANUAL DIFFERENTIAL MANUAL DIFFERENTIAL (MANUAL DIFF)
--- NOTE | 2022-01-15 10:59 | PC.NURSE ---
PATIENT REQUESTED MIRROR TO ATTEMPT TO DO HIS OWN DRESSING CHANGE. STAND UP MIRROR PROVIDED. Pepper PARRY RN AND Celsa SNOW RN TO ASSIST PATIENT.
[2022-01-15 11:16] LABS: Lymphocytes % 8 % (10-50); Monocytes % 3 % (2-9); Neutrophils % 89 % (42-76); Platelet Estimate Normal; RBC Morphology Normal; Total Cells Counted 100
--- NOTE | 2022-01-15 11:42 | CARE MANAGER ---
Received call from nurse Pemberton that patient is needing a way to get dressing changes post-discharge. Patient lives in [place], he has a vehicle in his name thus he would have to private pay both way to [facility] daily for dressing changes, which he states he cannot afford. Due to patient's insurance he is not a candidate for home health dressing changes, thus this home health care case manager reached out to the [facility] primary clinic in [place] and spoke with Geena, she talked to BERNIE Juarez who states that could preform dressing changes M-F 8am-430pm, patient would have to come to [facility] on Wednesday or Wednesday for those dressing changes and he voiced understanding. Order and paperwork faxed to [phone], patient will likely discharge later today.
[2022-01-15 11:51] LABS: POC Glucose,Bedside 265 (70-110)
[2022-01-15 13:40] LABS: Vancomycin,Trough 12.4 ug/mL (5.0-10.0)
--- NOTE | 2022-01-16 14:17 | CARE MANAGER ---
Attempted post-discharge phone interview with patient and no there was no answer. Did call [facility] and they state patient did come today for dressing change.
--- NOTE | 2022-01-18 23:05 | HMH.DCSUM ---
General - General Admission date:: 01/14/22 <Manas Zamora - 01/22/22 22:41> 01/14/22 <Jocelyn James - 01/18/22 23:09> Discharge date: 01/15/22 <PeteyErwin medranoa - 01/18/22 23:09> HPI HPI: Mr. Spann is a 51-year-old male with a history of type 2 diabetes mellitus and hypertension who presented to [facility] with a fever as high as 101 at home. He describes some left groin discomfort and feels he has an abscess in this area. He also experienced some chest tightness across the entire anterior chest with a warm sensation. He denied having any shortness of breath nausea or vomiting. With evaluation in the emergency room EKG showed a sinus tach with PVCs at a rate of 124 with no evidence of ischemia. White blood cell count was noted to be 20,300. Troponins were all negative. Chest x-ray was negative for an acute process. He received a liter of IV fluids and was given aspirin and a nitroglycerin tablet at which time his pain subsided. He was also placed on nitroglycerin paste. Echo has been completed with pending results. <Jocelyn James - 01/18/22 23:09> Hospital Course Hospital Course: The patient was admitted and continued on cefepime and vancomycin pending surgical drainage of his abscess. Both cardiology and surgery were consulted. Cardiology saw the patient and his troponins were negative and EKG was negative as well. They recommended an outpatient stress test. He had a normal echo. He was also seen in consultation by Dr. Walker who scheduled him for an incision and drainage of the left medial thigh abscess. He was taken to the OR on 01/14/2022 for an I&D. He did well and had dressing changes. He had no spreading cellulitis after the procedure. He was stable to be discharged home on continued antibiotics. His blood culture showed no growth. <PeteyJocelyn medrano - 01/18/22 23:09> Objective Vital signs: Temp Pulse Resp BP Pulse Ox 98.4 F 80 15 126/90 95 01/15/22 11:24 01/15/22 12:00 01/15/22 11:24 01/15/22 11:24 01/15/22 11:24 <Manas Zamora - 01/22/22 22:41> Temp Pulse Resp BP Pulse Ox 98.4 F 80 15 126/90 95 01/15/22 11:24 01/15/22 12:00 01/15/22 11:24 01/15/22 11:24 01/15/22 11:24 <Jocelyn James - 01/18/22 23:09> Narrative: Alert and oriented. Lungs are clear. Heart is distant but regular.. Blood sugars have been running high. <Jocelyn James - 01/18/22 23:09> Results Labs on day of discharge: Preliminary micro results at discharge 01/14/22 14:58 Abscess Culture - Preliminary Groin - Left NO GROWTH AFTER 4 DAYS 01/13/22 23:12 Blood Culture - Preliminary Blood NO GROWTH AFTER 48 HOURS 01/13/22 23:12 Blood Culture - Preliminary Blood NO GROWTH AFTER 48 HOURS <Jocelyn James - 01/18/22 23:09> DS: Diagnosis - Discharge Diagnosis (1) Abscess of left thigh Status: Acute (2) Atypical chest pain Status: Acute (3) Hypertension Status: Acute (4) Hyperlipidemia Status: Acute (5) Diabetes mellitus Status: Acute <Jocelyn James - 01/18/22 23:05> (1) Abscess of left thigh Status: Acute (2) Atypical chest pain Status: Acute (3) Hypertension Status: Acute (4) Hyperlipidemia Status: Acute (5) Diabetes mellitus Status: Acute <NoahManas Nishant - 01/22/22 22:41> Discharge Plan - Patient Discharge Instructions ACTIVITY: Limited activity <Jocelyn James - 01/18/22 23:09> DIET: diabetic diet <Jocelyn James - 01/18/22 23:09> Patient Instructions: DI for Incision and Drainage of a Skin Abscess, Incision and Drainage of a Skin Abscess, DI for Surgical Site Infection, DI for Chest Pain, DI for Skin Abscess <Manas Zamora - 01/22/22 22:41> Forms: <Manas Zamora - 01/22/22 22:41> - Follow up Plan Follow up with: Donn Lobo MD [Staff Physician] - 01/21/22 8:30 am Tin Walker MD [Staff Physician] -
== END 2022-01-15 14:30 | disposition home or self-care (01) ==
LOC: ER 01-14 00:06 → ICU 01-14 00:30
PROVIDERS: Surgery; Admitting Provider Family Medicine; Emergency Provider Emergency Medicine; Visit Provider Family Medicine
DX: R07.2 Precordial pain (principal); Z79.899 Other long term (current) drug therapy; L02.416 Cutaneous abscess of left lower limb; I10 Essential (primary) hypertension; E78.5 Hyperlipidemia, unspecified; E11.9 Type 2 diabetes mellitus without complications; K21.9 Gastro-esophageal reflux disease without esophagitis; Z79.4 Long term (current) use of insulin; F17.210 Nicotine dependence, cigarettes, uncomplicated; Z20.822 Contact with and (suspected) exposure to COVID-19
CPT/HCPCS: 10061; 36415; 71046; 80048; 80076; 80202; 81001; 82962; 83036; 83605; 83880; 84145; 84439; 84443; 84484; 85007; 85025; 85610; 85651; 86140; 87040; 87070; 87075; 87205; 93005; 93306; 99285; C9803; G0378; J0692; J2405; J3370; Q9957; U0003; U0005

== ENCOUNTER → 2022-01-17 11:57 | Outpatient (CLI) | payer MEDICAID, SELFPAY ==
[2022-01-17 11:57] VITALS: BP 138/72; PULSE 82; RESP 18; TEMP 36.8; O2SAT 98
[2022-01-17 12:05] VITALS: BP 141/86; PULSE 88; RESP 18; TEMP 36.8; O2SAT 97
== END ==
PROVIDERS: PCP Pediatrics; Visit Provider Surgery
DX: L02.416 Cutaneous abscess of left lower limb (principal)
CPT/HCPCS: G0463

== ENCOUNTER → 2022-01-18 12:02 | Outpatient (CLI) | payer MEDICAID, SELFPAY ==
[2022-01-18 12:02] VITALS: BP 136/84; PULSE 72; RESP 18; TEMP 36.9; O2SAT 96
[2022-01-18 12:15] VITALS: BP 128/82; PULSE 80; RESP 18; TEMP 36.9; O2SAT 98
== END ==
PROVIDERS: Visit Provider Surgery
DX: L02.416 Cutaneous abscess of left lower limb (principal); Z48.00 Encounter for change or removal of nonsurgical wound dressing
CPT/HCPCS: G0463

== ENCOUNTER 2022-01-24 12:28 | Outpatient (CLI) | payer MEDICAID, SELFPAY | END 2022-01-24 13:10 | disposition home or self-care (01) | LOC: INF 12:29 | PROVIDERS: PCP Pediatrics; Visit Provider Surgery | DX: L02.416 Cutaneous abscess of left lower limb (principal); Z48.01 Encounter for change or removal of surgical wound dressing | CPT/HCPCS: G0463 ==

== ENCOUNTER → 2022-01-25 13:29 | Outpatient (CLI) | payer MEDICAID, SELFPAY | PROVIDERS: Visit Provider Surgery | DX: L02.416 Cutaneous abscess of left lower limb (principal); Z48.00 Encounter for change or removal of nonsurgical wound dressing | CPT/HCPCS: G0463 ==

== ENCOUNTER → 2022-01-28 06:33 | Outpatient (CLI) | payer MEDICAID, SELFPAY ==
[2022-01-27 18:49] LABS: Anion Gap 12.1 mEq/L (5-15); Blood Urea Nitrogen 7 mg/dl (9-20); Calcium 9.1 mg/dl (8.4-10.2); Carbon Dioxide 27 mmol/L (22.0-30.0); Chloride 103 mmol/L (98-107); Estimated Glomerular Filt Rate 227 ml/min (>60); GFR (African American) 274 ML/MIN (>60); Glucose 302 mg/dl (74-100); Potassium 4.1 mmoL/L (3.5-5.1); Sodium 138 mmol/L (136-145)
== END ==
PROVIDERS: PCP Family Medicine; Visit Provider Family Medicine
DX: E11.9 Type 2 diabetes mellitus without complications (principal); Z79.4 Long term (current) use of insulin
CPT/HCPCS: 80048

== ENCOUNTER → 2022-01-28 07:03 | Outpatient (CLI) | payer MEDICAID, SELFPAY ==
--- NOTE | 2022-01-28 07:05 | CA_ITS ---
APPROVED REPORT Exam: Nuclear Stress Test Indication: HTN, DM, TOB USE, FM HX, C.P., ABN EKG Patient Location: Outpatient Stress Tech: Lulu Pineda, [place] Tech:Lurdes Perez, MADIT, RT (R)(N) Ht: 5 ft 8 in Wt: 301 lbs HR: 79 bpm BP: 126/73 mmHg BSA: 2.43 m2 Rhythm: NSR, PVCs, slow R wave progression, low voltage QRS TID: 1.08 BMI: 45.7 History: HTN, Hyperlipidemia, Diabetic ??? Insulin, Smoking,TOB USE, FM HX, C.P., ABN EKG PT CANNOT LAY ON STOMACH FOR PRONE IMAGES. Procedure: Patient received a 0.4 mg of intravenous Lexiscan, resting heart rate 87 bpm, resting blood pressure 126/73 mmHg, with Lexiscan maximum heart rate achived was 129 bpm which is Less than 85 % of the maximum predicted heart rate and blood pressure was 146/77 mmHg. With Lexiscan, patient denied any complaint of chest pain. Electrocardiogram Resting electrocardiogram shows sinus rhythm, with Lexiscan there is less than 1.[address] segment depression noted from the baseline EKG. The EKG portion of the Lexiscan is nondiagnostic. Cardiac Stress and Resting SPECT Images: Cardiac Stress and Resting SPECT images were obtained using technetium 99m Myoview 30.8 mCi stress and 10.35 mCi at rest. Gated SPECT analysis of segmental wall motion and calculation of the ejection fraction also done. Cardiac stress and rest SPECT images show uniform myocardial activity without segmental perfusion abnormality, computer derived ejection fraction is 47% with no regional wall motion abnormality, right ventricle is normal size and contractility. Conclusion: 1. The EKG portion of the Lexiscan is nondiagnostic. 2. No scintigraphic evidence of reversible ischemia seen, compared to ejection fraction is 47% with no regional wall motion abnormality, right ventricle is normal size and contractility. 3. Likely normal Lexiscan Myoview study. Electronically signed by : Haroon Sawyer MD 01/28/2022 17:55:59
--- NOTE | 2022-01-28 07:05 | NM_ITS ---
APPROVED REPORT Exam: Nuclear Stress Test Indication: chest pain Patient Location: Outpatient Stress Tech: Aniya Flynn AL Tech:LEO Baker RT (R)(N)(M) Ht: 5 ft 8 in Wt: 300 lbs HR: 87 bpm BP: 126/73 mmHg BSA: 2.43 m2 TID: 1.08 BMI: 45.6 History: chest pain Procedure: Patient received a 0.4 mg of intravenous Lexiscan, resting heart rate 87 bpm, resting blood pressure 126/72 mmHg, with Lexiscan maximum heart rate achived was 129 bpm which is Less than 85 % of the maximum predicted heart rate and blood pressure was 146/77 mmHg. With Lexiscan, patient denied any complaint of chest pain. Electrocardiogram Resting electrocardiogram shows sinus rhythm, with Lexiscan there is less than 1.[address] segment depression noted from the baseline EKG. The EKG portion of the Lexiscan is nondiagnostic. Cardiac Stress and Resting SPECT Images: Cardiac Stress and Resting SPECT images were obtained using technetium 99m Myoview 30.8 mCi stress and 10.35 mCi at rest. Gated SPECT analysis of segmental wall motion and calculation of the ejection fraction also done. Cardiac stress and rest SPECT images show reversible ischemia involving the inferior apical wall, computer derived ejection fraction is 47% with mild inferior apical wall hypokinesis, right ventricle is normal size and contractility. Conclusion: 1. The EKG portion of the Lexiscan is nondiagnostic. 2. Scintigraphic evidence of mild reversible ischemia involving the inferior apical wall, computer derived ejection fraction is 47% with no regional wall motion abnormality, right ventricle is normal size and contractility. 3. Abnormal Lexiscan Myoview study. Electronically signed by : Haroon Sawyer MD 01/30/2022 10:13:18
== END ==
PROVIDERS: PCP Pediatrics; Visit Provider Nurse Practitioner
DX: R07.89 Other chest pain (principal); I10 Essential (primary) hypertension; E78.5 Hyperlipidemia, unspecified; E66.9 Obesity, unspecified; Z68.42 Body mass index [BMI] 45.0-49.9, adult; Z72.0 Tobacco use
CPT/HCPCS: 78452; 93017; A9502; J2785

== ENCOUNTER → 2022-01-31 13:58 | Outpatient (CLI) | payer MEDICAID, SELFPAY ==
[2022-01-31 13:58] VITALS: BP 131/74; PULSE 82; RESP 16; TEMP 36.8; O2SAT 98
[2022-01-31 14:19] VITALS: BP 135/62; PULSE 86; RESP 18; TEMP 36.8; O2SAT 98
== END ==
PROVIDERS: Visit Provider Surgery
DX: L02.416 Cutaneous abscess of left lower limb (principal); Z48.01 Encounter for change or removal of surgical wound dressing
CPT/HCPCS: G0463

== ENCOUNTER → 2022-02-01 14:34 | Outpatient (CLI) | payer MEDICAID, SELFPAY ==
[2022-02-01 14:50] VITALS: BP 145/76; PULSE 122; RESP 20; TEMP 37; O2SAT 98
== END ==
PROVIDERS: PCP Pediatrics; Visit Provider Surgery
DX: L02.416 Cutaneous abscess of left lower limb (principal); Z48.01 Encounter for change or removal of surgical wound dressing
CPT/HCPCS: G0463

== ENCOUNTER 2022-02-07 11:58 | Outpatient (CLI) | payer MEDICAID, SELFPAY | END 2022-02-07 12:35 | disposition home or self-care (01) | LOC: INF 11:59 | PROVIDERS: PCP Pediatrics; Visit Provider Surgery | DX: L02.416 Cutaneous abscess of left lower limb (principal); Z48.01 Encounter for change or removal of surgical wound dressing | CPT/HCPCS: G0463 ==

== ENCOUNTER 2022-02-08 15:42 | Outpatient (CLI) | payer MEDICAID, SELFPAY | END 2022-02-08 16:04 | disposition home or self-care (01) | LOC: INF 15:44 | PROVIDERS: PCP Pediatrics; Visit Provider Surgery | DX: L02.416 Cutaneous abscess of left lower limb (principal); Z48.01 Encounter for change or removal of surgical wound dressing | CPT/HCPCS: G0463 ==

== ENCOUNTER → 2022-02-10 12:21 | Outpatient (CLI) | payer MEDICAID, SELFPAY ==
[2022-02-10 12:37] LABS: Basophils # 0.1 K/mm3 (0-0.2); Basophils % 0.9 % (0.1-2.0); Eosinophils # 0.3 K/mm3 (0.0-0.4); Eosinophils % 2.2 % (0.1-12.0); Hematocrit 47.9 % (42.0-52.0); Hemoglobin 15.2 g/dL (14.1-18.0); Lymphocytes # 2.6 K/mm3 (0.7-4.5); Lymphocytes % 18.8 % (10-50); Mean Corpuscular HGB Conc 31.6 g/dL (31.8-35.4); Mean Corpuscular Hemoglobin 30.4 pg (27.0-31.2); Mean Corpuscular Volume 96.2 fl (80-94); Mean Platelet Volume 8.6 fl (7.4-10.4); Monocytes # 0.5 K/mm3 (0.1-1.0); Monocytes % 3.7 % (1.7-9.3); Neutrophils # 10.4 K/mm3 (1.8-7.8); Neutrophils % 74.3 % (37.0-80.0); Platelet Count 316 K/mm3 (142-424); Red Blood Count 4.98 M/mm3 (4.60-6.20); Red Cell Distribution Width 13.8 % (11.5-17.5)
[2022-02-10 13:41] LABS: Chloride 100 mmol/L (98-107); Sodium 137 mmol/L (136-145)
[2022-02-10 13:42] LABS: Potassium 4.1 mmoL/L (3.5-5.1)
[2022-02-10 13:44] LABS: Blood Urea Nitrogen 8 mg/dl (9-20); Estimated Glomerular Filt Rate 175 ml/min (>60); GFR (African American) 212 ML/MIN (>60)
[2022-02-10 13:45] LABS: Anion Gap 13.1 mEq/L (5-15); Calcium 9.6 mg/dl (8.4-10.2); Carbon Dioxide 28 mmol/L (22.0-30.0); Glucose 321 mg/dl (74-100)
== END ==
PROVIDERS: Visit Provider Physician Assistant
DX: Z01.812 Encounter for preprocedural laboratory examination (principal); Z20.822 Contact with and (suspected) exposure to COVID-19; I20.8 Other forms of angina pectoris; R06.02 Shortness of breath; R94.39 Abnormal result of other cardiovascular function study; Z72.0 Tobacco use; Z82.49 Family history of ischemic heart disease and other diseases of the circulatory system
CPT/HCPCS: 36415; 80048; 85025; C9803; U0003; U0005

== ENCOUNTER 2022-02-11 09:02 | Day surgery (SDC) | payer MEDICAID, SELFPAY ==
[2022-02-11] VITALS (11 sets, daily range): BP systolic 117–156; BP diastolic 76–92; PULSE 80–95; RESP 18–20; TEMP 36.6; O2SAT 92–97; BMI 45.1
--- NOTE | 2022-02-11 07:08 | IR_ITS ---
APPROVED REPORT Patient Location: Outpatient PROCEDURES Left heart catheterization Left ventriculogram Selective coronary angiogram INDICATION Angina pectoris, High risk abnormal Myoview Informed consent was obtained prior to the procedure. COMPLICATIONS NONE Estimated Blood Loss: LESS THAN 10 ML TECHNIQUE One percent lidocaine used to anesthetize the right anterior aspect of the wrist. The right radial artery was accessed via the Seldinger technique. A 6 [place] sheath was placed in the right radial artery. 2.5 mg of verapamil, 800 mcg of nitroglycerin, 1mg Lidocaine and 5000 U Heparin were given through the arterial sheath. The papa catheter was also used to perform left heart catheterization, left ventriculogram and selective coronary angiogram. At the end of the procedure the sheath was removed good hemostasis was achieved using Traclet band, patient was transferred to the postop holding area in stable condition. ANGIOGRAPHIC RESULTS The left main artery Normal The left anterior descending artery Has a proximal 20 to 30% stenosis with mild mid vessel 10 to 20% stenoses The circumflex artery Is a massively large dominant vessel with mild 10% diffuse luminal irregularity The right coronary artery Vestigial normal The EDGE ventriculogram reveals Preserved 50% The left ventricular end-diastolic pressure Severely elevated at 25 mmHg IMPRESSION Mild nonflow limiting coronary disease Preserved ejection fraction Moderate to severely elevated LVEDP which is the likely etiology for patient's symptoms PLAN 1. Standard therapy for coronary artery disease with attention on risk factor modification 2. Treatment of diastolic dysfunction which is etiology for patient's symptoms 3. Avoidance of tobacco products 4. LDL less than 55 to be achieved with high intensity statin Electronically signed by : Donn Lobo MD 02/11/2022 13:47:17
== END 2022-02-11 14:16 | disposition home or self-care (01) ==
LOC: CATHLAB 09:05
PROVIDERS: PCP Nurse Practitioner; Visit Provider Internal Medicine
DX: R94.39 Abnormal result of other cardiovascular function study (principal); F17.210 Nicotine dependence, cigarettes, uncomplicated; I25.118 Atherosclerotic heart disease of native coronary artery with other forms of angina pectoris; E11.9 Type 2 diabetes mellitus without complications; E66.01 Morbid (severe) obesity due to excess calories; Z68.42 Body mass index [BMI] 45.0-49.9, adult; Z79.899 Other long term (current) drug therapy; K21.9 Gastro-esophageal reflux disease without esophagitis
CPT/HCPCS: 93458; 99152; C1725; C1760; C1769; J1644; Q9967

== ENCOUNTER → 2022-02-12 06:48 | Outpatient (CLI) | payer MEDICAID, SELFPAY | PROVIDERS: PCP Nurse Practitioner; Visit Provider Nurse Practitioner | DX: L02.416 Cutaneous abscess of left lower limb (principal) | CPT/HCPCS: 87070; 87186; 87205 ==

== ENCOUNTER → 2022-02-14 13:08 | Outpatient (CLI) | payer MEDICAID, SELFPAY ==
[2022-02-14 13:38] VITALS: BP 158/94; PULSE 118; RESP 20; TEMP 36.9; O2SAT 95
== END ==
PROVIDERS: PCP Pediatrics; Visit Provider Surgery
DX: L02.416 Cutaneous abscess of left lower limb (principal)
CPT/HCPCS: G0463

== ENCOUNTER 2022-02-15 15:33 | Outpatient (CLI) | payer MEDICAID, SELFPAY ==
--- NOTE | 2022-02-15 17:43 | PC.NURSE ---
old dressing and packing removed. New tiffanie wrap packed into small wound on inside of left thigh. covered with folded 4x4 and tape. pt tolerated well.
== END 2022-02-15 15:50 | disposition home health service (06) ==
LOC: INF 15:34
PROVIDERS: PCP Pediatrics; Visit Provider Surgery
DX: L02.416 Cutaneous abscess of left lower limb (principal); Z48.01 Encounter for change or removal of surgical wound dressing
CPT/HCPCS: G0463

== ENCOUNTER → 2022-02-27 21:05 | Outpatient (CLI) | payer MEDICAID, SELFPAY ==
[2022-02-27 21:56] LABS: Anion Gap 15.4 mEq/L (5-15); Blood Urea Nitrogen 8 mg/dl (9-20); Calcium 9.5 mg/dl (8.4-10.2); Carbon Dioxide 28 mmol/L (22.0-30.0); Chloride 99 mmol/L (98-107); Estimated Glomerular Filt Rate 119 ml/min (>60); GFR (African American) 144 ML/MIN (>60); Glucose 215 mg/dl (74-100); Potassium 4.4 mmoL/L (3.5-5.1); Sodium 138 mmol/L (136-145)
== END ==
PROVIDERS: PCP Physician Assistant; Visit Provider Physician Assistant
DX: I25.10 Atherosclerotic heart disease of native coronary artery without angina pectoris (principal); I10 Essential (primary) hypertension; E78.2 Mixed hyperlipidemia; E66.01 Morbid (severe) obesity due to excess calories; Z68.42 Body mass index [BMI] 45.0-49.9, adult; Z72.0 Tobacco use; Z98.890 Other specified postprocedural states
CPT/HCPCS: 80048

== ENCOUNTER → 2022-07-31 13:07 | Outpatient (CLI) | payer MEDICAID, SELFPAY | PROVIDERS: PCP Family Medicine; Visit Provider Family Medicine | DX: L72.9 Follicular cyst of the skin and subcutaneous tissue, unspecified (principal) | CPT/HCPCS: 87070; 87205 ==

== ENCOUNTER 2022-08-01 12:47 | Emergency (ER) | payer MEDICAID, SELFPAY ==
[2022-08-01 13:00] VITALS: BP 0/0; PULSE 0; RESP 0; TEMP -17.7; TEMP 0
== END 2022-08-01 13:02 | disposition left against medical advice (07) ==
LOC: UTC 12:50
PROVIDERS: Emergency Provider Nurse Practitioner Family; PCP Family Medicine
DX: Z53.21 Procedure and treatment not carried out due to patient leaving prior to being seen by health care provider (principal)

== ENCOUNTER → 2022-11-03 23:23 | Outpatient (CLI) | payer MEDICAID, SELFPAY ==
[2022-11-03 18:45] LABS: Alanine Aminotransferase 43 U/L (12-78); Albumin Level 4.5 g/dl (3.5-5.0); Albumin/Globulin Ratio 1.7 (1.1-1.8); Alkaline Phosphatase 108 U/L (38-126); Anion Gap 21.7 mEq/L (5-15); Aspartate Amino Transferase 42 U/L (17-59); Bilirubin,Total 0.5 mg/dl (0.2-1.3); Blood Urea Nitrogen 14 mg/dl (9-20); Calcium 9.3 mg/dl (8.4-10.2); Carbon Dioxide 25 mmol/L (22.0-30.0); Chloride 94 mmol/L (98-107); Estimated Glomerular Filt Rate 141 ml/min (>60); GFR (African American) 171 ML/MIN (>60); Globulin 2.7 g/dL (1.3-3.2); Glucose 249 mg/dl (74-100); Potassium 3.7 mmoL/L (3.5-5.1); Sodium 137 mmol/L (136-145); Total Protein,Serum 7.2 g/dl (6.3-8.2)
[2022-11-03 19:18] LABS: Prostate Specific Ag Screen 0.5 ng/ml (0.0-4.0)
== END ==
LOC: LAB.DROPOF 23:23
PROVIDERS: PCP Family Medicine; Visit Provider Family Medicine
DX: E11.9 Type 2 diabetes mellitus without complications (principal); N40.0 Benign prostatic hyperplasia without lower urinary tract symptoms; Z79.4 Long term (current) use of insulin; Z12.5 Encounter for screening for malignant neoplasm of prostate
CPT/HCPCS: 80053; G0103

== ENCOUNTER → 2023-04-01 11:00 | Outpatient (CLI) | payer MEDICAID, SELFPAY ==
[2023-04-01 20:56] LABS: Alanine Aminotransferase 47 U/L (12-78); Albumin Level 4.9 g/dl (3.5-5.0); Albumin/Globulin Ratio 1.5 (1.1-1.8); Alkaline Phosphatase 112 U/L (38-126); Anion Gap 19.2 mEq/L (5-15); Aspartate Amino Transferase 38 U/L (17-59); Bilirubin,Total 0.7 mg/dl (0.2-1.3); Blood Urea Nitrogen 16 mg/dl (9-20); Calcium 9.4 mg/dl (8.4-10.2); Carbon Dioxide 25 mmol/L (22.0-30.0); Chloride 98 mmol/L (98-107); Estimated Glomerular Filt Rate 89 ml/min (>60); GFR (African American) 107 ML/MIN (>60); Globulin 3.3 g/dL (1.3-3.2); Glucose 213 mg/dl (74-100); Potassium 4.2 mmoL/L (3.5-5.1); Sodium 138 mmol/L (136-145); Total Protein,Serum 8.2 g/dl (6.3-8.2)
[2023-04-01 21:40] LABS: Hemoglobin A1C 7.2 % (4.0-6.0)
== END ==
PROVIDERS: PCP Nurse Practitioner; Visit Provider Nurse Practitioner
DX: E11.9 Type 2 diabetes mellitus without complications (principal); Z79.4 Long term (current) use of insulin
CPT/HCPCS: 80053; 83036

== ENCOUNTER 2023-04-18 16:54 | Emergency (ER) | payer MEDICAID, SELFPAY ==
[2023-04-18 16:56] VITALS: BP 112/89; PULSE 129; RESP 16; TEMP 37.1; O2SAT 97; BMI 43.7
--- NOTE | 2023-04-18 17:13 | HMH.EDGENADL ---
Discharge Plan Disposition Patient Disposition: Home, Self-Care Prescriptions Prescriptions: New prednisone 50 mg tablet 50 mg PO DAILY 5 Days Qty: 5 0RF Rx Instructions: Please begin 1 day after ED visit No Action simvastatin 20 mg tablet See Rx Instructions .ROUTE .COMPLEX Qty: 30 4RF Dose Instruction: Take 1 tablet by mouth at bedtime nightly for Cholesterol Rx Instructions: Take 1 tablet by mouth at bedtime nightly for Cholesterol lisinopril 10 mg tablet 10 mg PO DAILY Qty: 30 4RF methocarbamol 750 mg tablet 750 mg PO QID PRN (Reason: muscle spasm) Qty: 120 1RF diclofenac sodium 75 mg tablet,delayed release (DR/EC) 75 mg PO BID Qty: 60 0RF glimepiride 2 mg tablet 2 mg PO DAILY Qty: 30 2RF furosemide 80 mg tablet 80 mg PO DAILY Qty: 90 1RF metformin 1,000 mg tablet See Rx Instructions .ROUTE .COMPLEX Qty: 60 2RF Dose Instruction: Take 1 tablet by mouth twice a day for Diabetes Rx Instructions: Take 1 tablet by mouth twice a day for Diabetes omeprazole 20 MG capsule,delayed release(DR/EC) 20 mg PO DAILY Referrals Follow up/Referrals: Nini Leal APRN [Primary Care Provider] - See instructions Activity Restrictions/Add. Instructions Additional Instructions/Restrictions: Please keep your follow-up appoint with Dr. Perez on April 28 return with any symptoms as discussed or other concerns. Clinical Impressions Clinical Impression: Lumbosacral strain, Sciatic pain Discharge ED Provider: Kellie Kovacs General Adult HPI General Chief complaint: PAIN Stated complaint: pain in back radiating to legs Time Seen by Provider: 04/18/23 16:57 Mode of Arrival: Wheelchair Limitations: No Limitations Description of Symptoms (Recalled from ER Triage Doc. by RN): pt playing basketball, lunged for ball began to have back pain radiated down to right leg History of Present Illness HPI narrative: Patient is a 52-year-old male here with right sided back pain rating down the right posterior aspect of his leg after trying to catch a basketball and injuring his back. Patient has chronic back pain for which she is on diclofenac and Robaxin. Patient denies any midline lower back pain. Denies any saddle anesthesia or lower extremity paralysis urinary bowel incontinence history of injection drug use fevers history of cancer etc. Has never been diagnosed with herniated disc in the past. States symptoms have only been ongoing for a few hours. Related Data Home Medications Medication Instructions Recorded Confirmed omeprazole 20 mg capsule,delayed 20 mg PO DAILY GERD 01/13/22 04/08/23 release Previous Rx's Medication Instructions Recorded lisinopril 10 mg tablet 10 mg PO DAILY #30 tabs 11/03/22 simvastatin 20 mg tablet See Rx Instructions .Route 11/03/22 .COMPLEX #30 tabs furosemide 80 mg tablet 80 mg PO DAILY Fluid #90 tabs 01/13/23 metformin 1,000 mg tablet See Rx Instructions .Route 01/29/23 .COMPLEX #60 tabs diclofenac sodium 75 mg 75 mg PO BID #60 tabs 04/01/23 tablet,delayed release methocarbamol 750 mg tablet 750 mg PO QID PRN muscle spasm 04/01/23 #120 tabs glimepiride 2 mg tablet 2 mg PO DAILY #30 tabs 04/08/23 prednisone 50 mg tablet 50 mg PO DAILY 5 days #5 tabs 04/18/23 Allergies Allergy/AdvReac Type Severity Reaction Status Date / Time methylprednisolone AdvReac Verified 04/08/23 10:22 [From Solu-Medrol] [facility] Disclaimer: The information contained in this section may have been updated after the patient was seen, as this information can be updated by other users. Medical History Abnormal cardiovascular stress test Abscess Abscess of left thigh Atypical angina Atypical chest pain BPH w/o urinary obs/LUTS Cervical disc disease Coronary artery disease Diabetes mellitus Diastolic dysfunction Dyspnea Family history of heart disease Groin abscess Hyperlipidemia Hypertension Low back pain
[2023-04-18 18:08] VITALS: BP 141/84; PULSE 97; RESP 16; TEMP 37.1
== END 2023-04-18 18:08 | disposition home or self-care (01) ==
PROVIDERS: Emergency Provider Student in an Organized Health Care Education/Training Program; PCP Nurse Practitioner
DX: M54.50 Low back pain, unspecified (principal); M54.30 Sciatica, unspecified side
CPT/HCPCS: 96372; 99284

== ENCOUNTER → 2023-04-28 12:59 | Outpatient (POV) | payer MEDICAID, SELFPAY ==
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
[2023-04-28 13:55] VITALS: BP 120/81; PULSE 110; RESP 19; O2SAT 97; BMI 43.9
== END ==
PROVIDERS: PCP Family Medicine; Visit Provider Nurse Practitioner Family
DX: M54.16 Radiculopathy, lumbar region (principal); M54.50 Low back pain, unspecified; G89.29 Other chronic pain
CPT/HCPCS: 99202; G0463

== ENCOUNTER → 2023-05-24 13:06 | Outpatient (POV) | payer MEDICAID, SELFPAY ==
--- NOTE | 2023-05-24 13:40 | EXP.PAIN.SOA ---
[facility] Pain Management SOAP Note Subjective:: Patient is a pleasant 52-year-old male who presents today for insurance denial. We are currently treating the patient for low back pain with lumbar radiculopathy symptoms, left leg pain. Today he rates his pain a 7 out of 10. Patient denies any new trauma or injury. Patient denies any change to location or type of pain he experiences. Patient states he continues to have pain in his low back that radiates down his entire left leg. Patient does describe this as an aching, throbbing sensation with numbness and tingling into his extremity. Patient denies any recent imaging. Patient has tried [id number] medications along with gabapentin, meloxicam and diclofenac with minimal relief. Patient is currently on methocarbamol 750 mg 4 times a day. His Otto has been reviewed and is appropriate. Review of Systems: General: No recent weight changes, no fever, no sleep disturbances Respiratory: No cough, no shortness of air, no recurring pulmonary infections Cardiovascular/peripheral vascular: No chest pain, no palpitations, no edema, no shortness of breath Gastrointestinal: No new onset incontinence, normal bowel movements reported Genitourinary: No new onset incontinence Musculoskeletal: Low back pain, left leg pain Psychiatric: [Normal mood/affect] Neurological: [Denies weakness in extremities], [denies balance issues] Objective:: Physical Exam: General: Alert and oriented x3, no acute distress, pleasant and cooperative Lungs: Respirations even and unlabored, symmetrical chest expansion Eyes: PERRL Musculoskeletal: Flexion and extension of lumbar [spine] somewhat guarded secondary to pain, [antalgic gait noted] Neurological: Speech clear, no gross sensory deficit Assessment:: Low back pain with lumbar radiculopathy symptoms, left leg pain Plan:: Patient continues to experience significant pain in his low back with radiating symptoms down his entire left leg. I discussed with the patient that I will order x-ray imaging as well as MRI without contrast of his lumbar spine. Patient will return to clinic following this imaging for reevaluation of symptoms and plan of care. Patient is requesting an open MRI and I have counseled him that [facility] does have 1 that we can send him to when we get to that point. Patient has been instructed to contact the clinic with any concerns before the next appointment. Dr. Perez has reviewed this note and agrees with this plan of care. This note was dictated using voice recognition software and make contain errors or omissions. [facility] Disclaimer: The information contained in this section may have been updated after the patient was seen, as this information can be updated by other users. Medical History Abnormal cardiovascular stress test Abscess Abscess of left thigh Atypical angina Atypical chest pain BPH w/o urinary obs/LUTS Cervical disc disease Coronary artery disease Diabetes mellitus Diastolic dysfunction Dyspnea Family history of heart disease Groin abscess Hyperlipidemia Hypertension Low back pain Lumbar degenerative disc disease Obesity Severe sepsis with acute organ dysfunction Shoulder pain, right Rotator cuff tear is likely. He has had previous problems with his left shoulder. Tobacco use Surgical History Abscess of groin, left H/O cardiac catheterization Medical mgt JAN 2022 History of hernia repair History of repair of anterior cruciate ligament of right knee Right shoulder pain Family History Other Cancer Diabetes Hyperlipidemia Hypertension Social History Smoking Status: Current every day smoker tobacco type: cigarettes packs per day: 1 alcohol intake: never substance use type: denies use current occupational status: unemployed Travel in the last 8
[2023-05-24 15:09] VITALS: RESP 20; BMI 43.8
== END ==
PROVIDERS: PCP Family Medicine; Visit Provider Nurse Practitioner Family
DX: M54.16 Radiculopathy, lumbar region (principal); M54.50 Low back pain, unspecified; M79.605 Pain in left leg
CPT/HCPCS: 99212; G0463

== ENCOUNTER → 2023-05-24 13:49 | Outpatient (CLI) | payer MEDICAID, SELFPAY ==
--- NOTE | 2023-05-24 13:53 | XR_ITS ---
FINAL REPORT CLINICAL HISTORY: LBP FINDINGS: LUMBAR SPINE Six views demonstrate no acute fracture. There is mild spondylosis and mild diffuse degenerative disc disease. There is moderate facet arthropathy. There is no malalignment. IMPRESSION: Degenerative changes as above. Reviewed, Interpreted and Dictated by Dar Theodore MD Transcribed by Adeline Foster Authenticated and [facility] [place]
== END ==
PROVIDERS: PCP Family Medicine; Visit Provider Anesthesiology
DX: M54.50 Low back pain, unspecified (principal)
CPT/HCPCS: 72110

== ENCOUNTER → 2023-06-22 09:38 | Outpatient (POV) | payer MEDICAID, SELFPAY ==
[2023-06-22 09:50] VITALS: BP 133/76; PULSE 120; RESP 20; O2SAT 97; BMI 42.5
--- NOTE | 2023-06-22 10:20 | EXP.PAIN.SOA ---
[facility] Pain Management SOAP Note Subjective:: This patient is a pleasant 52-year-old male that comes to clinic today for follow-up and review of lumbar MRI. We discussed in detail his lumbar MRI results. Patient has multilevel disc bulge lumbar spine. Multilevel bilateral neuroforaminal narrowing. Nerve impingement on the L4 nerve roots due to disc material extending out into the foramen region. I discussed treatment options with the patient. Insurance constraints will require patient to attend physical therapy for 6 weeks prior to any injective therapy. He is currently taking meloxicam, diclofenac and methocarbamol. These medications do help with some of the pain. However, he rates his left hip and leg pain 10/10. Patient reports ambulation increases pain significantly. Patient reports low back pain bilateral hip and leg radicular symptoms. However, his left hip and leg is the worst symptom. Patient has positive left leg raise. Pain intensifies significantly. Objective:: Patient awake alert [place] x 3. No acute distress. Flexion-extension lumbar spine very guarded secondary to pain. Deep tendon reflexes upper lower extremities normal. Motor strength upper and lower extremities normal. There is no gross sensory deficit. Gait is antalgic. Assessment:: Degenerative disc lumbar spine multilevels. Lumbar radiculopathy. Lumbar disc bulge multilevel lumbar spine. Nerve impingement L4-5, L5-S1. Plan:: We will schedule patient for physical therapy for the low spine as well as radicular symptoms. He will return to see us post physical therapy. We also discussed at length intralaminar epidural steroid injections for his symptomology. We also discussed surgical intervention might be required. Patient's Otto #[id number] has been reviewed and appropriate. [facility] Disclaimer: The information contained in this section may have been updated after the patient was seen, as this information can be updated by other users. Medical History Abnormal cardiovascular stress test Abscess Abscess of left thigh Atypical angina Atypical chest pain BPH w/o urinary obs/LUTS Cervical disc disease Coronary artery disease Diabetes mellitus Diastolic dysfunction Dyspnea Family history of heart disease Groin abscess Hyperlipidemia Hypertension Low back pain Lumbar degenerative disc disease Obesity Severe sepsis with acute organ dysfunction Shoulder pain, right Rotator cuff tear is likely. He has had previous problems with his left shoulder. Tobacco use Surgical History Abscess of groin, left H/O cardiac catheterization Medical mgt JAN 2022 History of hernia repair History of repair of anterior cruciate ligament of right knee Right shoulder pain Family History Other Cancer Diabetes Hyperlipidemia Hypertension Social History Smoking Status: Current every day smoker tobacco type: cigarettes packs per day: 1 alcohol intake: never substance use type: denies use current occupational status: unemployed Travel in the last 8 weeks: None housing: house caffeine: Yes
== END ==
LOC: SC.PAIN 09:38
PROVIDERS: PCP Family Medicine; Visit Provider Nurse Anesthetist, Certified Registered
DX: M51.16 Intervertebral disc disorders with radiculopathy, lumbar region (principal); M51.26 Other intervertebral disc displacement, lumbar region; G54.4 Lumbosacral root disorders, not elsewhere classified
CPT/HCPCS: 99212; G0463

== ENCOUNTER → 2023-07-22 13:11 | Outpatient (POV) | payer MEDICAID, SELFPAY ==
[2023-07-22 13:20] VITALS: BP 120/87; PULSE 95; RESP 18; O2SAT 97; BMI 43.8
--- NOTE | 2023-07-22 13:27 | EXP.PAIN.SOA ---
[facility] Pain Management SOAP Note Subjective:: Patient is a pleasant 52-year-old male who presents today for follow-up. We are currently treating the patient for low back pain with lumbar radiculopathy symptoms, left leg pain. Today he rates his pain a 9 out of 10. Patient denies any new trauma or injury. He states he continues to experience significant pain throughout his low back and down his left leg. Patient does state this is a constant sharp shooting pain that is always interfering with his ability perform activities of daily living such as cooking and cleaning. Patient states that it is affecting his sleep or even simple ambulation. Patient has been going to physical therapy however it has made his pain worse. Patient states he is attended 3 different visits and every time it caused worsening pain as well as he is having to cover the cost of the therapy. Patient is very frustrated with this because he is not getting any benefit to improving his pain however costing him more money. Patient has tried and failed conservative treatment such as Tylenol and ibuprofen along with heat and ice and topicals. Patient was doing home exercise and stretching at home prior to physical therapy however this was limited on his worsening pain symptoms. Patient does state that he currently takes diclofenac 75 mg twice a day and has also been taking meloxicam with this and the methocarbamol 750 mg 4 times daily. Patient states that he has not noticed any additional improvement with these medications. His Otto has been reviewed and is appropriate. Review of Systems: General: No recent weight changes, no fever, no sleep disturbances Respiratory: No cough, no shortness of air, no recurring pulmonary infections Cardiovascular/peripheral vascular: No chest pain, no palpitations, no edema, no shortness of breath Gastrointestinal: No new onset incontinence, normal bowel movements reported Genitourinary: No new onset incontinence Musculoskeletal: Low back pain, left leg pain Psychiatric: [Normal mood/affect] Neurological: [Denies weakness in extremities], [denies balance issues] Objective:: Physical Exam: General: Alert and oriented x3, no acute distress, pleasant and cooperative Lungs: Respirations even and unlabored, symmetrical chest expansion Eyes: PERRL Musculoskeletal: Flexion and extension of lumbar [spine] somewhat guarded secondary to pain, [antalgic gait noted] positive left leg raise with decreased sensation to light touch and decreased reflexes Neurological: Speech clear, no gross sensory deficit Assessment:: Degenerative disc disease of lumbar spine with lumbar radiculopathy symptoms, left leg pain Plan:: Patient continues to experience significant pain in his low back all the way down his left leg. Patient did have limited range of motion of his lumbar spine along with a positive left leg raise and decreased sensation to light touch and decreased reflexes during today's exam. Patient has tried and failed conservative treatment such as oral medication, heat and ice, topical, physical therapy, at home stretching exercise for longer than 6 weeks. I have counseled the patient that he still may benefit from a left transforaminal epidural steroid injection. Risk and benefits were discussed with patient and he would like to proceed forward with this plan of care. Patient is not on any blood thinners. I have also discussed with the patient that he does not need to be taking both the meloxicam and the diclofenac at the same time. I have counseled the patient that both of these medications are excreted through the kidneys and using both can cause altered kidney function. Patient acknowledges this and agrees to stop taking one of the medications. I have counseled the patient that he can still take Tylenol arthritis or other acetaminophen products with the diclofenac. We will resubmit to insurance for the left transforaminal epidural steroid injection L4-L5 and L5-S1 under fluoroscopy. Patient has been instructed to contact the clinic with any concerns before the next appointment. Dr. Perez has reviewed this note and agrees with this plan of care. This note was dictated using voice recognition software and make contain errors or omissions. [facility] Disclaimer: The information contained in this section may have been updated after the patient was seen, as this information can be updated by other users. Medical History Abnormal cardiovascular stress test Abscess Abscess of left thigh Atypical angina Atypical chest pain BPH w/o urinary obs/LUTS Cervical disc disease Coronary artery disease Diabetes mellitus Diastolic dysfunction Dyspnea Family history of heart disease Groin abscess Hyperlipidemia Hypertension Low back pain Lumbar degenerative disc disease Obesity Severe sepsis with acute organ dysfunction Shoulder pain, right Rotator cuff tear is likely. He has had previous problems with his left shoulder. Tobacco use Surgical History Abscess of groin, left H/O cardiac catheterization Medical mgt JAN 2022 History of hernia repair History of repair of anterior cruciate ligament of right knee Right shoulder pain Family History Other Cancer Diabetes Hyperlipidemia Hypertension Social History Smoking Status: Current every day smoker tobacco type: cigarettes packs per day: 1 alcohol intake: never substance use type: denies use current occupational status: unemployed Travel in the last 8 weeks: None housing: house caffeine: Yes
== END ==
LOC: SC.PAIN 13:11
PROVIDERS: PCP Family Medicine; Visit Provider Nurse Practitioner Family
DX: M51.16 Intervertebral disc disorders with radiculopathy, lumbar region (principal); M79.605 Pain in left leg
CPT/HCPCS: 99212; G0463

== ENCOUNTER 2023-07-28 17:40 | Emergency (ER) | payer MEDICAID, SELFPAY ==
[2023-07-28 17:41] VITALS: BP 123/68; PULSE 76; RESP 16; TEMP 36.7; O2SAT 98; BMI 45.1
[2023-07-28 18:00] VITALS: BP 122/78; PULSE 84; RESP 20; O2SAT 95
--- NOTE | 2023-07-28 18:26 | ED_ITS ---
Discharge Plan Disposition Chief Complaint: Eye Problems Prescriptions Prescriptions: No Action furosemide 80 mg tablet 80 mg PO DAILY Qty: 90 1RF methocarbamol 750 mg tablet See Rx Instructions .ROUTE .COMPLEX Qty: 120 1RF Dose Instruction: Take 1 Tablet by mouth 4 times daily as needed for muscle spasms. Rx Instructions: Take 1 Tablet by mouth 4 times daily as needed for muscle spasms. diclofenac sodium 75 mg tablet,delayed release (DR/EC) See Rx Instructions .ROUTE .COMPLEX Qty: 60 0RF Dose Instruction: Take 1 Tablet by mouth twice daily. Rx Instructions: Take 1 Tablet by mouth twice daily. glimepiride 2 mg tablet See Rx Instructions .ROUTE .COMPLEX Qty: 30 2RF Dose Instruction: Take 1 Tablet by mouth once daily. Rx Instructions: Take 1 Tablet by mouth once daily. simvastatin 20 mg tablet See Rx Instructions .ROUTE .COMPLEX Qty: 30 2RF Dose Instruction: Take 1 tablet by mouth at bedtime nightly for Cholesterol Rx Instructions: Take 1 tablet by mouth at bedtime nightly for Cholesterol metformin 1,000 mg tablet See Rx Instructions .ROUTE .COMPLEX Qty: 60 2RF Dose Instruction: Take 1 tablet by mouth twice a day for Diabetes Rx Instructions: Take 1 tablet by mouth twice a day for Diabetes lisinopril 10 mg tablet See Rx Instructions .ROUTE .COMPLEX Qty: 30 2RF Dose Instruction: Take 1 tablet by mouth once daily for Hypertension Rx Instructions: Take 1 tablet by mouth once daily for Hypertension omeprazole 20 MG capsule,delayed release(DR/EC) 20 mg PO DAILY Referrals Follow up/Referrals: Dar Esquivel MD [Primary Care Provider] - See instructions Activity Restrictions/Add. Instructions Additional Instructions/Restrictions: Follow-up with Dr. Liu tomorrow, 07/29 to have rust ring removed. Today, you had metallic foreign body removed from your right eye with residual rust ring. Call your family doctor to establish care for this visit to the emergency department and schedule follow-up within 48 hours to ensure improvement. If you have any worsening of your condition or any other concerning signs or symptoms, return to the emergency department or your primary care doctor for further evaluation. Use the ointment that was given to you here 3 times daily for 5 days Clinical Impressions Clinical Impression: Rust ring of right cornea due to metallic foreign body Discharge ED Provider: Sylvain Duckworth General Adult HPI General Chief complaint: Eye Problems Stated complaint: FO in right eye Time Seen by Provider: 07/28/23 17:43 Mode of Arrival: Ambulatory Source of Information: Patient Limitations: No Limitations Description of Symptoms (Recalled from ER Triage Doc. by RN): Patient reports grinding on a piece of metal approx 1-2 weeks ago and got metal shavings in his right eye. States he came to the ER today because that eye is burning and hurting him. History of Present Illness HPI narrative: 52-year-old male history of diabetes presenting with foreign body in his right eye. Patient was using a metal window screen assembler when a small piece flipped up and hit him in the right eye. This happened about a week and a half ago. Patient states that he has been dealing with the pain. Does not remember his last tetanus. No vision complaints or changes. Related Data Home Medications Medication Instructions Recorded Confirmed omeprazole 20 mg capsule,delayed 20 mg PO DAILY GERD 01/13/22 07/22/23 release Previous Rx's Medication Instructions Recorded furosemide 80 mg tablet 80 mg PO DAILY Fluid #90 tabs 01/13/23 methocarbamol 750 mg tablet See Rx Instructions .Route 06/01/23 .COMPLEX #120 tabs diclofenac sodium 75 mg See Rx Instructions .Route 06/29/23 tablet,delayed release .COMPLEX #60 tabs glimepiride 2 mg tablet See Rx Instructions .Route 06/29/23 .COMPLEX #30 tabs lisinopril 10 mg tablet See Rx Instructions .Route 06/29/23 .COMPLEX #30 tabs metformin 1,000 mg tablet See Rx Instructions .Route 06/29/23 .COMPLEX #60 tabs simvastatin 20 mg tablet See Rx Instructions .Route 06/29/23 .COMPLEX #30 tabs Allergies Allergy/AdvReac Type Severity Reaction Status Date / Time oxaprozin [From Daypro] Allergy Verified 07/28/23 17:52 methylprednisolone AdvReac Verified 04/08/23 10:22 [From Solu-Medrol] [facility] Disclaimer: The information contained in this section may have been updated after the patient was seen, as this information can be updated by other users. Medical History Abnormal cardiovascular stress test Abscess Abscess of left thigh Atypical angina Atypical chest pain BPH w/o urinary obs/LUTS Cervical disc disease Coronary artery disease Diabetes mellitus Diastolic dysfunction Dyspnea Family history of heart disease Groin abscess Hyperlipidemia Hypertension Low back pain Lumbar degenerative disc disease Obesity Severe sepsis with acute organ dysfunction Shoulder pain, right Rotator cuff tear is likely. He has had previous problems with his left shoulder. Tobacco use Surgical History Abscess of groin, left H/O cardiac catheterization Medical mgt JAN 2022 History of hernia repair History of repair of anterior cruciate ligament of right knee Right shoulder pain Family History Other Cancer Diabetes Hyperlipidemia Hypertension Social History Smoking Status: Current every day smoker tobacco type: cigarettes packs per day: 1 alcohol intake: never substance use type: denies use current occupational status: unemployed Travel in the last 8 weeks: None housing: house caffeine: Yes ROS Obtained: Yes All systems reviewed & no additional complaints except as documented Physical Exam General General appearance: alert and in no apparent distress Head Head exam: atraumatic and normocephalic Eye Eye exam: Present PERRL, EOMI and other (Foreign body right eye overlying 7 o'clock position on iris. Fluorescein exam with focal uptake, no evidence of Ankit sign) ENT ENT exam: Present mucous membranes moist Neck Neck exam: Present normal inspection, full ROM and trachea midline Respiratory Respiratory exam: Absent respiratory distress, wheezes, stridor, accessory muscle use or prolonged expiratory phase Cardiovascular Cardiovascular exam: Present normal rhythm Abdominal Exam Abdominal exam: Present soft; Absent distention, tenderness, guarding, rebound or rigidity Extremities Exam Extremities exam: Absent edema Neurological Exam Neurological exam: Present alert, oriented X3, CN II-XII intact and normal gait; Absent motor sensory deficit Skin Skin exam: Present warm and dry; Absent diaphoresis or erythema Medical Decision Making Medical Records Medical records reviewed: Yes I reviewed the patient's medical records. Otto Inquiry Pt receiving controlled substance: No Otto was queried for this patient: No Vital Signs: 07/28/23 17:41 07/28/23 18:00 Temperature 98.0 F Temperature Source Oral Pulse Rate 84 Pulse Rate [Radial] 76 Respiratory Rate 16 20 Blood Pressure 122/78 Blood Pressure [Right Arm] 123/68 Blood Pressure Mean 89 Blood Pressure Mean [Right Arm] 86 Blood Pressure Source [Right Arm] Automatic Cuff Blood Pressure Position [Right Arm] Sitting 02 Sat by Pulse Oximetry 98 95 Oxygen Delivery Method Room Air Orders (Tests/Meds): ED MEDICATIONS Discontinued Medications Generic Name Dose Route Start Last Admin Trade Name Amber PRN Reason Stop Dose Admin Fluorescein Sodium 1 mg 07/28/23 17:44 07/28/23 18:31 Fluorescein Sodium 1mg Strip OP 07/28/23 17:45 1 mg ONCE ONE Administration Tetanus/Reduced Diphtheria/Acell Pertussis 0.5 ml 07/28/23 18:10 07/28/23 18:30 Tet/Diphth/Pert-Adult 0.5ml Syringe IM 07/28/23 18:11 0.5 ml .ONCE ONE Administration Tetracaine HCl 0 ml 07/28/23 17:44 07/28/23 18:31 Tetracaine 0.5% Opth Amanda 15ml OP 07/28/23 17:45 15 ml ONCE ONE Administration Medical Decision Narrative: 52-year-old male history of diabetes presenting with foreign body in his right eye. Patient was using a metal window screen assembler when a small piece flipped up and hit him in the right eye. This happened about a week and a half ago. Patient states that he has been dealing with the pain. Does not remember his last tetanus. No vision complaints or changes. History was obtained via conversation with patient. On arrival, patient hemodynamically stable, alert, oriented x4, appropriate, GCS 15, moving all extremities spontaneously, pupils equal and reactive to light. Full physical exam performed and significant for patient has metallic foreign body with rust ring 6 to 7 o'clock position on iris of right eye. Focal uptake with fluorescein, no evidence of Ankit sign. EOMs intact . Differential includes foreign body, rust ring, among others. Patient was given topical tetracaine, fluorescein for symptomatic management and correction of underlying abnormalities. Foreign body removed manually Given patient presentation, workup, history, this most likely represents foreign body with rust ring in right eye. Patient given Tdap and discharged. Because patient at baseline without signs or symptoms of clinical decompensation, deemed appropriate for discharge. Results were relayed to patient who voiced understanding and were agreeable to outpatient management and follow up. At the time of discharge the patient was hemodynamically stable, tolerating PO, and mobilizing appropriately. Procedures Eye Exam/FB Removal Location: eye (R) Topical anesthetic used: tetracaine Fluorescein Stick(s) used: Yes Time Out performed: No Procedure performed under: direct visualization with magnification Foreign body: metal Evidence of corneal penetration: No Technique: irrigation, cotton tip swab and needle Post-procedure medication: ophthalmic antibiotic Patient tolerated procedure: well Complications: residual rust ring Critical Care Critical Care Time Critical Care Time: No
[2023-07-28] MEDS: TET/DIPHTH/PERT-ADULT 0.5ML SYRINGE 0.5 ML IM (18:30)
[2023-07-28] MEDS: FLUORESCEIN SODIUM 1MG STRIP 1 MG OP (18:31)
[2023-07-28] MEDS: TETRACAINE 0.5% OPTH SOL 15ML OP (18:31)
[2023-07-28 18:53] VITALS: BP 122/78; PULSE 84; RESP 20; TEMP 36.7; O2SAT 95
== END 2023-07-28 18:54 | disposition home or self-care (01) ==
PROVIDERS: Emergency Provider Emergency Medicine; PCP Family Medicine
DX: T15.01XA Foreign body in cornea, right eye, initial encounter (principal); E11.9 Type 2 diabetes mellitus without complications; I25.118 Atherosclerotic heart disease of native coronary artery with other forms of angina pectoris; E78.5 Hyperlipidemia, unspecified; I10 Essential (primary) hypertension; F17.210 Nicotine dependence, cigarettes, uncomplicated; W22.8XXA Striking against or struck by other objects, initial encounter
CPT/HCPCS: 65222; 90471; 90715; 99283

== ENCOUNTER 2023-08-03 10:56 | Day surgery (SDC) | payer MEDICAID, SELFPAY ==
[2023-08-03 11:30] VITALS: BP 137/84; PULSE 83; RESP 18; TEMP 36.6; O2SAT 98; BMI 45.1
[2023-08-03 11:34] VITALS: BP 170/96; PULSE 88; RESP 18; O2SAT 97
[2023-08-03] MEDS: LIDOCAINE 1% 5ML PF VIAL 5 ML (11:36)
[2023-08-03 11:40] VITALS: BP 137/83; PULSE 84; RESP 18; O2SAT 98
--- NOTE | 2023-08-03 12:01 | EXP.PAIN.PRO ---
Procedure Date: 08/03/23 Time: 11:00 Anesthesiologist:: Ameya Dorsey CRNA Complications:: None Pre-procedure Diagnosis:: Degenerative disc lumbar spine levels. Lumbar radiculopathy. Multilevel disc bulge lumbar spine Post-procedure Diagnosis:: Same. Indications for Procedure:: Patient is a very pleasant 52-year-old male comes our clinic today for a left L4-5, L5-S1 transforaminal epidural steroid injection. Patient reports low back pain to the left as well as left hip and leg radicular symptoms to the foot. He rates his pain 7/10. Patient reports having injections in the past. However, not with us. Also, he is unsure as to what type of injection he had. Procedure Details:: Details of the procedure were explained to the patient. The patient was taken the procedure room placed in the prone position. The area of the lumbar spine was cleansed using chlorhexidine as a cleansing solution. At this time using fluoroscopy guidance markers were placed on the left lateral border of the L4 and L5 vertebral body. The skin and subcutaneous tissue was anesthetized using 1% lidocaine and 25-gauge needle. At this time using a 22-gauge 3-1/2 inch spinal needle the left upper one third of the L4-5 foramen was accessed. The same was done at the left L5-S1 foramen. Needle positions were confirmed and a lateral view using fluoroscopy and contrast dye. At this time 1 cc of 1% lidocaine +20 mg of Depo-Medrol was injected at each level after negative aspiration. [place] were removed. Band-Aid applied. Patient tolerated the procedure without difficulty. There are no complications. Plan and Disposition:: Patient was discharged without incident.
== END 2023-08-03 11:40 | disposition home or self-care (01) ==
PROVIDERS: PCP Family Medicine; Visit Provider Nurse Anesthetist, Certified Registered
DX: M51.16 Intervertebral disc disorders with radiculopathy, lumbar region (principal); M51.26 Other intervertebral disc displacement, lumbar region
CPT/HCPCS: 64483; 64484; J1030

== ENCOUNTER 2023-08-20 10:41 | Outpatient (POV) | payer MEDICAID, SELFPAY ==
[2023-08-20 11:04] VITALS: BP 120/78; PULSE 91; RESP 18; O2SAT 97; BMI 43.8
--- NOTE | 2023-08-20 11:25 | A.OFFVIS_ITS ---
[facility] Pain Management SOAP Note Subjective:: Patient is a pleasant 52-year-old male who presents today who presents today for follow-up of left transforaminal epidural on 08/03/2023. We are currently treating the patient for degenerative disc disease of lumbar spine with lumbar radiculopathy symptoms, left leg pain. Today he rates his pain a 9 out of 10. Patient denies any new trauma or injury. He does state that he continues to have the same pain in his low back he states that he did not really have significant enough relief with this injection. He does still state his pain is an aching sensation with occasional sharp shooting pains that goes into his left leg. He does state that that does interfere with his ability perform activities of daily living such as cooking and cleaning. He states the pain is interfering with even his sleeping which is also affecting his overall pain. Patient does state that he had a MRI done in [place]. Patient has been tried on diclofenac and meloxicam as well as methocarbamol with minimal improvement. Patient is requesting something for pain if possible. His Otto has been reviewed and is appropriate. Review of Systems: General: No recent weight changes, no fever, no sleep disturbances Respiratory: No cough, no shortness of air, no recurring pulmonary infections Cardiovascular/peripheral vascular: No chest pain, no palpitations, no edema, no shortness of breath Gastrointestinal: No new onset incontinence, normal bowel movements reported Genitourinary: No new onset incontinence Musculoskeletal: Low back pain, leg pain Psychiatric: [Normal mood/affect] Neurological: [Denies weakness in extremities], [denies balance issues] Objective:: Physical Exam: General: Alert and oriented x3, no acute distress, pleasant and cooperative Lungs: Respirations even and unlabored, symmetrical chest expansion Eyes: PERRL Musculoskeletal: Flexion and extension of lumbar [spine] somewhat guarded secondary to pain, [antalgic gait noted] positive left leg raise Neurological: Speech clear, no gross sensory deficit MRI lumbar spine without contrast [place] diagnostic June 19, 2023 Findings: There is disc desiccation throughout the lumbar spine. Vertebral body height and alignment appears grossly preserved. Conus terminates at approximately the L1 level. T12-L2: No significant canal or foraminal stenosis. L2-L3: Small disc bulge with mild articular facet disease. Mild to moderate left and mild right foraminal narrowing. Mild canal narrowing along the posterior lateral aspect L3-4: Concentric disc bulge with mild articular facet disease and ligamentum flavum hypertrophy. Mild canal and foraminal narrowing. L4-L5: There is concentric disc bulge with mild articular facet disease and ligamentum flavum hypertrophy. Mild canal narrowing. Moderate foraminal narrowing with disc material extending out into the foraminal region contacting the exiting L4 nerve roots L5-S1: There is concentric disc bulge with a left paracentral disc protrusion that impinges upon the descending left greater than right S1 nerve root. Moderate foraminal narrowing worse on the left Assessment:: Degenerative disc disease of lumbar spine with lumbar radiculopathy symptoms, left leg pain, lumbar spinal stenosis, ligamentum flavum hypertrophy Plan:: Patient continues to experience significant pain in his low back and leg with limited range of motion and a positive left leg raise. I have discussed with the patient due to his recent MRI findings that I would recommend that he try a lumbar epidural at the L5-S1 level. Risk and benefits were discussed with patient and he would like to proceed forward with this plan of care. Patient has tried and failed conservative therapy such as oral medication, heat and ice, topicals, recent physical therapy and continued at home exercising and stretching for longer than 6 weeks. I will send in a prescription of tramadol 50 mg twice daily and provide a 14-day supply of this medication. Patient will be scheduled for a LESI L5-S1 under fluoroscopy. Patient has been instructed to contact the clinic with any concerns before the next appointment. Dr. Perez has reviewed this note and agrees with this plan of care. This note was dictated using voice recognition software and make contain errors or omissions. [facility] Disclaimer: The information contained in this section may have been updated after the patient was seen, as this information can be updated by other users. Medical History Abnormal cardiovascular stress test Abscess Abscess of left thigh Atypical angina Atypical chest pain BPH w/o urinary obs/LUTS Cervical disc disease Coronary artery disease Diabetes mellitus Diastolic dysfunction Dyspnea Family history of heart disease Groin abscess Hyperlipidemia Hypertension Low back pain Lumbar degenerative disc disease Obesity Severe sepsis with acute organ dysfunction Shoulder pain, right Rotator cuff tear is likely. He has had previous problems with his left shoulder. Tobacco use Surgical History Abscess of groin, left H/O cardiac catheterization Medical mgt JAN 2022 History of hernia repair History of repair of anterior cruciate ligament of right knee Right shoulder pain Family History Other Cancer Diabetes Hyperlipidemia Hypertension Social History Smoking Status: Current every day smoker tobacco type: cigarettes packs per day: 1 alcohol intake: never substance use type: denies use current occupational status: unemployed Travel in the last 8 weeks: None housing: house caffeine: Yes
== END 2023-08-20 23:59 | disposition home or self-care (01) ==
PROVIDERS: PCP Family Medicine; Visit Provider Nurse Practitioner Family
DX: M51.16 Intervertebral disc disorders with radiculopathy, lumbar region (principal); M79.605 Pain in left leg; M48.061 Spinal stenosis, lumbar region without neurogenic claudication
CPT/HCPCS: 99212; G0463

== ENCOUNTER 2023-09-14 08:43 | Day surgery (SDC) | payer MEDICAID, SELFPAY ==
[2023-09-14 09:05] VITALS: BP 145/92; PULSE 87; RESP 16; TEMP 36.3; O2SAT 98; BMI 48.4
[2023-09-14] MEDS: methylPREDNISolone ACETATE 80MG/ML VIAL 80 MG (09:21)
[2023-09-14 09:24] VITALS: BP 144/98; PULSE 76; RESP 18; O2SAT 95
[2023-09-14 09:25] VITALS: BP 145/80; PULSE 72; RESP 18; O2SAT 98
[2023-09-14 09:28] VITALS: BP 144/98; PULSE 76; RESP 18; O2SAT 95
--- NOTE | 2023-09-14 09:33 | EXP.PAIN.PRO ---
Procedure Date: 09/14/23 Time: 09:33 Anesthesiologist:: Ameya Dorsey CRNA Complications:: None Pre-procedure Diagnosis:: Lumbar degenerative disc disease with lumbar radiculopathy. Post-procedure Diagnosis:: Same Indications for Procedure:: Patient is a pleasant 52-year-old male who presents to the clinic today for lumbar epidural steroid injection at the L5-S1 level. Patient describes pain as constant, dull, aching, sharp, stabbing. He also reports bilateral hip and leg radicular symptoms at times. Patient reports pain 8/10. Procedure Details:: Procedure: Lumbar epidural steroid injection under fluoroscopy Informed consent was obtained and the risks and benefits of the procedure were explained to the patient. The patient was taken to the procedure room and noninvasive monitors placed, including noninvasive blood pressure cuff and pulse oximeter. The back was viewed using C-arm Fluoroscopy and prepped using Chloraprep as a cleansing solution and the L5-S1 interspace was palpated. Skin and subcutaneous tissues were anesthetized using lidocaine 1.5% and a 25-gauge needle. After this, an 18-gauge Touhy epidural needle was placed into the L5-S1 interspace and advanced using fluoroscopic guidance and loss of resistance to air until the epidural space was encountered. After confirmation of needle placement in the epidural space, with dye, a solution containing normal saline, 3 mL and Depo-Medrol 80 mg were incrementally injected into the lumbar epidural space. The patient tolerated the procedure well with no complications. The patient was observed in the Pain Clinic and then discharged home neurologically intact. Plan and Disposition:: Patient was discharged from the clinic without incident.
== END 2023-09-14 09:25 | disposition home or self-care (01) ==
PROVIDERS: PCP Family Medicine; Visit Provider Nurse Anesthetist, Certified Registered
DX: M51.16 Intervertebral disc disorders with radiculopathy, lumbar region (principal)
CPT/HCPCS: 62323; J1040

== ENCOUNTER 2023-10-06 11:05 | Outpatient (POV) | payer MEDICAID, SELFPAY ==
[2023-10-06 11:06] VITALS: BP 153/88; PULSE 89; RESP 19; TEMP 36.9; O2SAT 97; BMI 45.1
--- NOTE | 2023-10-06 11:41 | A.OFFVIS_ITS ---
[facility] Pain Management SOAP Note Subjective:: Patient is a pleasant 52-year-old male who presents today for follow-up of lumbar epidural steroid injection L5-S1 on 09/14/2023. Today he rates his pain an 8 out of 10. Patient denies any new trauma or injury. He states that he really did not notice significant improvement following this injection. He states he continues to have low back pain that does affect more his left lower extremity. He does also state that he has been having left knee pain over the last 2 weeks. He states he really does not notice it with walking or sitting however anytime there is pressure added to the knee he has worsening pain. Patient states that he has to get into bed a certain way due to his overall low back pain and that he puts more pressure on his knee at this time. Patient was prescribed tramadol with a 2-week supply in the past however he states he really did not notice much improvement with it. He has been tried on diclofenac and meloxicam as well as methocarbamol with minimal relief. Patient is asking if we could possibly send in medication such as oxycodone. His Otto has been re viewed. Review of Systems: General: No recent weight changes, no fever, no sleep disturbances Respiratory: No cough, no shortness of air, no recurring pulmonary infections Cardiovascular/peripheral vascular: No chest pain, no palpitations, no edema, no shortness of breath Gastrointestinal: No new onset incontinence, normal bowel movements reported Genitourinary: No new onset incontinence Musculoskeletal: Low back pain, left leg pain, left knee pain Psychiatric: [Normal mood/affect] Neurological: [Denies weakness in extremities], [denies balance issues] Objective:: Physical Exam: General: Alert and oriented x3, no acute distress, pleasant and cooperative Lungs: Respirations even and unlabored, symmetrical chest expansion Eyes: PERRL Musculoskeletal: Flexion and extension of lumbar [spine] somewhat guarded secondary to pain, [antalgic gait noted] Neurological: Speech clear, no gross sensory deficit Assessment:: Degenerative disc disease of lumbar spine with lumbar radiculopathy symptoms, left knee pain Plan:: Patient continues to experience significant pain throughout his low back and left leg. We have tried lumbar epidural as well as transforaminal injection with minimal relief. I have counseled the patient that we could try spinal cord stimulator trial however he states that he has had this in the past from a different provider and it did not provide any additional relief. I have counseled the patient that we cannot prescribe oxycodone and that the best we could do would be tramadol. Patient did not get significant relief with this and I have discussed with the patient if he has not noticed improvement there is no reason to continue to take it. Patient acknowledges understanding and agrees with this plan of care. I have discussed with the patient that he may do well on the medication for nerve pain such as amitriptyline or duloxetine. Patient states that he has not tried these in the past. I will send in an order for a compounded cream, prednisone 20 mg twice daily for 5 days dose and amitriptyline 25 mg daily with a 1 month supply. Patient will return to clinic in 1 month for reevaluation of symptoms and plan of care. Patient has been instructed to contact the clinic with any concerns before the next appointment. Dr. Perez has reviewed this note and agrees with this plan of care. This note was dictated using voice recognition software and make contain errors or omissions. [facility] Disclaimer: The information contained in this section may have been updated after the patient was seen, as this information can be updated by other users. Medical History Abnormal cardiovascular stress test Abscess Abscess of left thigh Atypical angina Atypical chest pain BPH w/o urinary obs/LUTS Cervical disc disease Coronary artery disease Diabetes mellitus Diastolic dysfunction Dyspnea Family history of heart disease Groin abscess Hyperlipidemia Hypertension Low back pain Lumbar degenerative disc disease Obesity Severe sepsis with acute organ dysfunction Shoulder pain, right Rotator cuff tear is likely. He has had previous problems with his left shoulder. Tobacco use Surgical History Abscess of groin, left H/O cardiac catheterization Medical mgt JAN 2022 History of hernia repair History of repair of anterior cruciate ligament of right knee Right shoulder pain Family History Other Cancer Diabetes Hyperlipidemia Hypertension Social History Smoking Status: Current every day smoker tobacco type: cigarettes packs per day: 1 alcohol intake: never substance use type: denies use current occupational status: employed Travel in the last 8 weeks: None housing: house caffeine: Yes
== END 2023-10-06 23:59 | disposition home or self-care (01) ==
PROVIDERS: PCP Family Medicine; Visit Provider Nurse Practitioner Family
DX: M51.16 Intervertebral disc disorders with radiculopathy, lumbar region (principal); M25.562 Pain in left knee
CPT/HCPCS: 99212; G0463

== ENCOUNTER 2023-10-19 18:00 | Outpatient (CLI) | payer MEDICAID, SELFPAY ==
[2023-10-19 18:50] LABS: Alanine Aminotransferase 29 U/L (12-78); Albumin Level 4.3 g/dl (3.5-5.0); Albumin/Globulin Ratio 1.7 (1.1-1.8); Alkaline Phosphatase 84 U/L (38-126); Anion Gap 11.9 mEq/L (5-15); Aspartate Amino Transferase 25 U/L (17-59); Bilirubin,Total 0.5 mg/dl (0.2-1.3); Blood Urea Nitrogen 14 mg/dl (9-20); Calcium 9.6 mg/dl (8.4-10.2); Carbon Dioxide 26 mmol/L (22.0-30.0); Chloride 107 mmol/L (98-107); Estimated Glomerular Filt Rate 141 ml/min (>60); GFR (African American) 171 ML/MIN (>60); Globulin 2.5 g/dL (1.3-3.2); Glucose 152 mg/dl (74-100); Potassium 4.9 mmoL/L (3.5-5.1); Sodium 140 mmol/L (136-145); Total Protein,Serum 6.8 g/dl (6.3-8.2)
[2023-10-19 19:17] LABS: Hemoglobin A1C 6.8 % (4.0-6.0)
[2023-10-19 19:18] LABS: Thyroid Stimulating Hormone 0.97 uIU/mL (0.465-4.68)
[2023-10-19 19:37] LABS: Vitamin B12 405 pg/mL (239-931)
[2023-10-19 19:53] LABS: Creatinine,Urine Random 152 mg/dL (Not Estab.)
[2023-10-19 19:56] LABS: Microalbumin/Creatinine Ratio 41.4
== END 2023-10-19 23:59 | disposition home or self-care (01) ==
LOC: LAB.DROPOF 10-20 08:32
PROVIDERS: PCP Nurse Practitioner; Visit Provider Nurse Practitioner
DX: E11.9 Type 2 diabetes mellitus without complications (principal); Z79.4 Long term (current) use of insulin; I10 Essential (primary) hypertension; E78.2 Mixed hyperlipidemia
CPT/HCPCS: 80053; 82043; 82570; 82607; 83036; 84443

== ENCOUNTER 2023-11-04 10:46 | Outpatient (POV) | payer MEDICAID, SELFPAY ==
[2023-11-04 10:51] VITALS: BP 160/94; PULSE 110; RESP 16; O2SAT 96; BMI 45.1
--- NOTE | 2023-11-04 11:03 | A.OFFVIS_ITS ---
[facility] Pain Management SOAP Note Subjective:: Patient is a pleasant 53-year-old male who presents today for 1 month follow-up. Today he rates his pain a 6 out of 10. Patient states that his morning has overall not been the best and he had car trouble so overall his pain is worse along with his blood pressure is a little high and heart rate up. Patient denies any new injury or trauma. He does state that the compounded cream worked exceptionally well for his knee pain however still has not made much difference of his overall back pain. He does state the medication was manage at the last visit of the amitriptyline 25 mg daily did not seem to make any difference however he denies any side effects. Patient was tried on tramadol from our office in the past however he stated this did not really give much improvement and we did not proceed forward with sending in additional refills. His Otto has been reviewed and is appropriate. Review of Systems: General: No recent weight changes, no fever, no sleep disturbances Respiratory: No cough, no shortness of air, no recurring pulmonary infections Cardiovascular/peripheral vascular: No chest pain, no palpitations, no edema, no shortness of breath Gastrointestinal: No new onset incontinence, normal bowel movements reported Genitourinary: No new onset incontinence Musculoskeletal: Low back pain, left leg pain Psychiatric: [Normal mood/affect] Neurological: [Denies weakness in extremities], [denies balance issues] Objective:: Physical Exam: General: Alert and oriented x3, no acute distress, pleasant and cooperative Lungs: Respirations even and unlabored, symmetrical chest expansion Eyes: PERRL Musculoskeletal: Flexion and extension of lumbar [spine] somewhat guarded secondary to pain, [antalgic gait noted] Neurological: Speech clear, no gross sensory deficit Assessment:: Low back pain, left leg pain, left knee pain Plan:: I have discussed with the patient that I did start him on a very low dose of amitriptyline. We will increase it to 75 mg at bedtime and send in a 1 month supply of this medication. I have also discussed with the patient that in future he still may benefit from the spinal cord stimulator trial. Patient does use a TENS unit on a daily basis. He states that he will think on it. I have counseled him that it is completely at his convenience if he would like to try this option in the future and just to let our office know. Patient will return to clinic in 1 month for reevaluation of symptoms and plan of care. Patient has been instructed to contact the clinic with any concerns before the next appointment. Dr. Perez has reviewed this note and agrees with this plan of care. This note was dictated using voice recognition software and make contain errors or omissions. [facility] Disclaimer: The information contained in this section may have been updated after the patient was seen, as this information can be updated by other users. Medical History Lumbar degenerative disc disease BPH w/o urinary obs/LUTS Cervical disc disease Low back pain Shoulder pain, right Rotator cuff tear is likely. He has had previous problems with his left shoulder. Diastolic dysfunction Coronary artery disease Abscess Dyspnea Family history of heart disease Atypical angina Abnormal cardiovascular stress test Abscess of left thigh Diabetes mellitus Hyperlipidemia Hypertension Atypical chest pain Tobacco use Obesity Severe sepsis with acute organ dysfunction Groin abscess Surgical History H/O cardiac catheterization Medical mgt JAN 2022 History of repair of anterior cruciate ligament of right knee Right shoulder pain History of hernia repair Abscess of groin, left Family History Other Cancer Diabetes Hyperlipidemia Hypertension Social History Smoking Status: Current every day smoker tobacco type: cigarettes packs per day: 1 alcohol intake: never substance use type: denies use current occupational status: other Travel in the last 8 weeks: None housing: house caffeine: Yes
== END 2023-11-04 23:59 | disposition home or self-care (01) ==
PROVIDERS: PCP Family Medicine; Visit Provider Nurse Practitioner Family
DX: M54.50 Low back pain, unspecified (principal); M79.605 Pain in left leg; M25.562 Pain in left knee
CPT/HCPCS: 99212; G0463

== ENCOUNTER 2024-02-22 15:42 | Outpatient (CLI) | payer SELFPAY ==
[2024-02-22 22:29] LABS: Alanine Aminotransferase 33 U/L (12-78); Albumin Level 4.3 g/dl (3.5-5.0); Albumin/Globulin Ratio 1.4 (1.1-1.8); Alkaline Phosphatase 88 U/L (38-126); Anion Gap 11.1 mEq/L (5-15); Aspartate Amino Transferase 28 U/L (17-59); Bilirubin,Total 0.7 mg/dl (0.2-1.3); Blood Urea Nitrogen 15 mg/dl (9-20); Calcium 9.7 mg/dl (8.4-10.2); Carbon Dioxide 26 mmol/L (22.0-30.0); Chloride 107 mmol/L (98-107); Chol/HDL Ratio 7.5 (1-3.5); Cholesterol 224 mg/dl (140-200); Estimated Glomerular Filt Rate 101 ml/min (>60); GFR (African American) 122 ML/MIN (>60); Glucose 146 mg/dl (74-100); HDL Cholesterol 30 mg/dl (40-60); Potassium 4.1 mmoL/L (3.5-5.1); Sodium 140 mmol/L (136-145); Total Protein,Serum 7.3 g/dl (6.3-8.2); Triglycerides 292 mg/dl (30-150); VLDL Cholesterol 58 mg/dL (0-40)
[2024-02-22 22:33] LABS: Hemoglobin A1C 6.6 % (4.0-6.0)
[2024-02-22 22:39] LABS: Direct LDL Cholesterol 144.83 mg/dL (100-129)
== END 2024-02-22 23:59 | disposition home or self-care (01) ==
LOC: LAB.DROPOF 02-23 13:57
PROVIDERS: PCP Nurse Practitioner; Visit Provider Nurse Practitioner
DX: E11.9 Type 2 diabetes mellitus without complications (principal); Z79.4 Long term (current) use of insulin; E78.2 Mixed hyperlipidemia
CPT/HCPCS: 80053; 80061; 83036

== ENCOUNTER 2024-12-28 09:51 | Outpatient (CLI) | payer MEDICAID, SELFPAY ==
[2024-12-28 18:47] LABS: Hematocrit 46.4 % (42.0-52.0); Hemoglobin 15.3 g/dL (14.1-18.0); Immature Granulocytes % 0.3 %; Mean Corpuscular HGB Conc 33.0 g/dL (31.8-35.4); Mean Corpuscular Hemoglobin 30.6 pg (27.0-31.2); Mean Corpuscular Volume 92.8 fl (80-94); Nucleated Red Blood Cells % 0 %; Platelet Count 275 K/mm3 (142-424); Red Blood Count 5.00 M/mm3 (4.60-6.20); Red Cell Distribution Width-SD 47.3 fL; White Blood Count 15.5 K/mm3 (4.8-10.8)
[2024-12-28 19:37] LABS: Alanine Aminotransferase 45 U/L (12-78); Albumin Level 5.0 g/dl (3.5-5.0); Albumin/Globulin Ratio 1.8 (1.1-1.8); Alkaline Phosphatase 104 U/L (38-126); Anion Gap 18.9 mEq/L (5-15); Aspartate Amino Transferase 38 U/L (17-59); Bilirubin,Total 0.8 mg/dl (0.2-1.3); Blood Urea Nitrogen 14 mg/dl (9-20); Calcium 9.7 mg/dl (8.4-10.2); Carbon Dioxide 26 mmol/L (22.0-30.0); Chloride 96 mmol/L (98-107); Cholesterol 149 mg/dl (140-200); Creatinine,Serum 0.70 mg/dl (0.66-1.25); Estimated Glomerular Filt Rate 118 ml/min (>60); GFR (African American) 142 ML/MIN (>60); Globulin 2.8 g/dL (1.3-3.2); Glucose 151 mg/dl (74-100); HDL Cholesterol 29 mg/dl (40-60); Potassium 3.9 mmoL/L (3.5-5.1); Sodium 137 mmol/L (136-145); Total Protein,Serum 7.8 g/dl (6.3-8.2)
[2024-12-28 19:50] LABS: Triglycerides 403 mg/dl (30-150)
[2024-12-28 19:54] LABS: T4 (Thyroxine) 7.0 ug/dl (5.53-11.0)
[2024-12-28 20:07] LABS: Thyroid Stimulating Hormone 1.77 uIU/mL (0.465-4.68)
[2024-12-28 20:11] LABS: Hemoglobin A1C 9.4 % (4.0-6.0)
[2024-12-28 20:25] LABS: Hepatitis C Ab Qual. W/ RFX NEGATIVE (Negative)
[2024-12-31 08:10] LABS: Hepatitis B Surface Antigen Negative (Negative)
--- OUTSIDE RECORDS SUMMARY | 2025-01-01 10:02 | XMS_ITS | Clinical Summary ---
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 Name Role Phone Shantelle TEMPLE, Carlos Blandon [phone] Conditions or Problems Problem Name Problem Code Onset Date Status Entry Date Provider Comment Standard Description Annotate Take Note of HEADACHE 73044344 (SNOMED CT) 11/28 Active 11/28 Arlene Dreyling MA Headache Take Note of SYMPTOM, MEMORY LOSS 61957021 (SNOMED CT) 11/28 Active 11/28 Arlene Dreyling MA Amnesia Take Note of SOB 026026817 (SNOMED CT) 11/28 Active 11/28 Arlene Dreyling MA Dyspnea Take Note of ANXIETY DEPRESSION 387863346 (SNOMED CT) 11/28 Active 11/28 Arlene Dreyling MA Mixed anxiety and depressive disorder Take Note of HYPERCHOLESTE ROLEMIA 87317982 (SNOMED CT) 11/28 Active 11/28 Arlene Dreyling MA Hypercholesterole melony Take Note of ARRHYTHMIA, HX OF 258371791 (SNOMED CT) 11/28 Active 11/28 Arlene Dreyling MA H/O: heart disorder Take Note of HYPERTRIGLYCE RIDEMIA 015613916 (SNOMED CT) 11/28 Active 11/28 Arlene Dreyling MA Hypertriglyceride melony NECK PAIN 20497651 (SNOMED CT) 11/23 Active 11/23 Arlene Dreyling MA Neck pain OBESITY 068498652 (SNOMED CT) 11/23 Active 11/23 Edwin Pancho TRAVEL MED SURG RN Obesity HERNIATED LUMBAR DISC 561453340 (SNOMED CT) 11/23 Active 11/23 Edwin Pancho TRAVEL MED SURG RN Prolapsed lumbar intervertebral disc NECK PAIN 78547265 (SNOMED CT) 11/23 Active 11/23 [facility] TRAVEL MED SURG RN Neck pain BACK PAIN, LUMBAR 804512791 (SNOMED CT) 11/23 Active 11/23 [facility] TRAVEL MED SURG RN Low back pain Medications Medication Instructions Start Date Stop Date Generic Name ND Provider SHA TBEC 3 DICLOFENAC SODIUM TBEC 02983204023 Arlene Dreyling MA FLEXERIL TABS Non-Garcia 3 CYCLOBENZAPRINE HCL TABS [id number] Arlene Dreyling MA LORCET PLUS 7.5-650 MG ORAL TABLET -Garcia 3 HYDROCODONE-ACETAM INOPHEN [id number] Arlene Dreyling MA DEPAKOTE ER [id number] 3 DIVALPROEX SODIUM TB24 [id number] Arlene Dreyling MA ATIVAN TABS [facility]arcia 3 LORAZEPAM TABS [id number] Arlene Dreyling MA FLEXERIL 10 MG TABS 1 po tid 9 CYCLOBENZAPRINE HCL [id number] [facility] TRAVEL MED SURG RN Medications Administered No information available. Allergies, Adverse Reactions, Alerts Allergy Name Reaction Description Start Date Severity Statu s Provider DAYPRO Critical Arlene Ghanshyam ling MA LIQUID STEROIDS Critical Lit a Dreyling MA Results No information available. Plan of Care Type Date Detail Pending order MRI Cervical Procedures No information available. Vital Signs Date Name Value Unit Description BP Diastolic 96 mm[Hg] blood pressu re, diastolic BP Systolic 142 mm[Hg] blood pressur e, systolic Height 69 [in_us] height E&M Weight Measured 229 [lb_av] weight E& M Weight Measured 229 [lb_av] weight E& M Immunizations No information available. Advance Directives No information available.
--- OUTSIDE RECORDS SUMMARY | 2025-01-01 10:03 | XMS_ITS | Clinical Summary ---
Author Organization [facility] Address [address] [place] [address] Phone Care Team Providers Care Bearingizer Name Role Phone Unavailable Primary Care Provider Unavailabl e Allergies Active Allergy Reactions Criticality Noted Date Comments Oxaprozin 04/01/2010 Medications aspirin 81 mg Oral Tablet, Chewable Take 81 mg by mouth daily. Active oxyCODONE-aceta minophen (PERCOCET) 10-325 mg Oral TabletIndicatio ns:DDD (degenerative disc disease), lumbar,Lumbar herniated disc Take 1 Tablet by mouth every 6 hours as needed for Chronic Pain (G89.29). 120 Tablet 1 Active Additional Information Patient not taking.Reason: Other, Reported on 05/28/2021 Blood-Glucose Meter,Continuou s (DEXCOM G6 AUTOMATION CONTROL TECHNICIAN) [facility] [place]isc[place]ications :Type 2 diabetes mellitus with hyperglycemia, without long-term current use of insulin (HCC) 1 Device [place] [facility]Non-Drug; Combo Route) route continuous. 1 Each 1 Active Blood-Glucose Sensor (DEXCOM G6 SENSOR) [facility] DeviceIndicatio ns:Type 2 diabetes mellitus with hyperglycemia, without long-term current use of insulin (HCC) 1 Each [place] [facility] [place]Non-Drug; Combo Route) route continuous. 3 Each 5 1 Active Blood-Glucose Transmitter (DEXCOM G6 TRANSMITTER) [facility] DeviceIndicatio ns:Type 2 diabetes mellitus with hyperglycemia, without long-term current use of insulin (HCC) 1 Each [place] [facility] [place]Non-Drug; Combo Route) route continuous. 1 Each 3 1 Active methocarbamoL (ROBAXIN) 500 mg Oral TabletIndicatio ns:Lumbar spondylosis,DDD (degenerative disc disease), lumbar Take 1 Tablet by mouth 3 times daily. 90 Tablet 1 Active diclofenac (VOLTAREN) 75 mg Oral Tablet, Delayed Release (E.C.)Indicatio ns:Lumbar spondylosis,DDD (degenerative disc disease), lumbar Take 1 Tablet by mouth 2 times daily as needed for Pain. 60 Tablet 1 Active lidocaine (LIDODERM) 5 % Top Adhesive Patch, MedicatedIndica tions:DDD (degenerative disc disease), lumbar 1 patch a day x 12 hours as needed 30 Patch 1 Active diclofenac (VOLTAREN) 75 mg Oral Tablet, Delayed Release (E.C.)Indicatio ns:Chronic right shoulder pain Take 1 Tablet by mouth 2 times daily (with meals). 60 Tablet 2 Active DAVID PEN NEEDLE 32 gauge x [facility] Needle USE DAILY WITH LANTUS 100 Each 11 2 Active omeprazole (PRILOSEC) 20 mg Oral Capsule, Delayed Release(E.C.)In dications:Abdom inal pain, RUQ (right upper quadrant),Dyspe psia Take 1 Cap by mouth daily. for stomach (INSURANCE LIMITS 1 PER DAY) 90 Capsule 2 Active Insulin glargine (LANTUS SOLOSTAR U-100 INSULIN) 100 unit/mL (3 mL) SubQ Insulin PenIndications: Type 2 diabetes mellitus with hyperglycemia, without long-term current use of insulin ([facility]) Subcutaneous (Inject under the skin) 20 Units nightly. 3 Each 5 2 Active fUROsemide (LASIX) 20 mg Oral TabletIndicatio ns:Essential hypertension, benign 2 a day 60 Tablet 5 2 Active Blood-Glucose Meter [facility] KitIndications: Type 2 diabetes mellitus with hyperglycemia, without long-term current use of insulin ([facility]) Provide what insurance prefers to check sugars bid 1 Kit 2 Active Lancets [facility] MiscIndications :Type 2 diabetes mellitus with hyperglycemia, without long-term current use of insulin ([facility]) To check sugars bid provide insurance preferred 60 Each 5 2 Active simvastatin (ZOCOR) 20 mg Oral TabletIndicatio ns:Hyperlipidem ia with target LDL less than 100 Take 1 Tablet by mouth every evening for cholesterol. 15 Tablet 3 Active lisinopriL (PRINIVIL;ZESTR IL) 10 mg Oral TabletIndicatio ns:Essential hypertension, benign Take 1 Tablet by mouth daily for blood pressure. 15 Tablet 3 Active metFORMIN (GLUCOPHAGE) 1,000 mg Oral TabletIndicatio ns:Type 2 diabetes mellitus with hyperglycemia, without long-term current use of insulin (HCC) Take 1 Tablet by mouth twice daily with meals for sugar. 15 Tablet 3 Active ONETOUCH DELICA PLUS LANCET 33 gauge Misc MiscIndications :Type 2 diabetes mellitus with hyperglycemia, without long-term current use of insulin (HCC) Use to test blood sugar twice daily and as needed. 100 Each 3 Active Blood Sugar Diagnostic (ONETOUCH ULTRA TEST) Misc StripIndication s:Type 2 diabetes mellitus with hyperglycemia, without long-term current use of insulin (HCC) Use to test blood sugar twice daily and as needed. 50 Strip 3 4 Active ONETOUCH DELICA PLUS LANCET 30 gauge Misc MiscIndications :Type 2 diabetes mellitus with hyperglycemia, without long-term current use of insulin (HCC) Use to test blood sugar twice daily and as needed. 100 Each 4 Active Active Problems Patient Care Coordination No te Formatting of this note migh t be different from the original. Care gap audit completed by Marina Duque, Compliance Review on 07/27/2023. [facility] - Spencer Cantrell MD Interventional Pain Protocol: Otto report completed (EVERY 3 MONTHS) ( 04/15/21 ) Pharmacy: [facility] [place] 03/08/12 otto done,12/21/17([id number]),10/07/20([id number]), 03/05/21 03/05/21 uds/quest done 03/05/21 csta,benzo done 03/05/21 soap done Otto 03/05/[address] Nash Pt diabetic- consider low dose statin Problem Noted Date Diagnosed Date Drug abuse 03/10/2021 Overview (03/10/2021): UDS + for Fentanyl and Oxycodone-no more conrtrolled meds here Lumbar herniated disc 03/05/2021 Essential hypertension, benign 03/08/2012 DDD (degenerative disc disease), lumbar 04/01/20 10 Overview (03/05/2021): 01-31-2019 MRI Lumbar IMPRESSION: Progressive degenerative change. Large progressive disc extrusions at L4-5 and L5-S1 since prior study. At L4-5 the disc extrusion is entirely new. See report for details. Transitional vertebra. Spinal segments/levels annotated and review of the annotated images necessary prior to intervention. Anxiety state, unspecified 04/01/2010 Other specified episodic mood disorder 0 Depressive disorder, not elsewhere classified Esophageal reflux Active smoker Encounters Date Type Department Care Team Description 12/08/[address] [id number] Chacho Gilman MD Medication Refill from Last 3 Months Immunizations Immunization Administration Dates Next Due Tdap 09/16/2017 Surgical History Surgery Date Site/Laterality Comments SHOULDER SURGERY 2003 KNEE ARTHROSCOPY 2007 lt HERNIA REPAIR 1992 KNEE SURGERY 2007 left knee KNEE ARTHROSCOPY 02/26/2020 Knee/Right RIGHT KNEE ARTHROSCOPY PARTIAL MEDIAL AND LATERAL MENISCECTOMIES; Surgeon: Samy Bueno MD; Location: [facility] MAIN OR; Service: Orthopedics Medical History Medical History Date Comments Back pain Hypertension Ulcer of the stomach and intestine Diabetes mellitus (HCC) Heartburn Arthritis Chronic pain back Social History Tobacco Use Types Packs/Day Years Used Date Smoking Tobacco: Every Day Cigarettes 3 41.5 Started: 06/28/1983 Smokeless Tobacco: Never Tobacco Cessation:Ready to Q uit: No; Counseling Given: Yes Comments:1-3 pks per day Alcohol Use Standard Drinks/Week Comments No 0 (1 standard drink = 0.6 oz pur e alcohol) AUDIT-C Answer Date Recorded Q1: How often do you have a drink containing alc ohol? Never 03/05/2021 Average Number of Drinks Not on file 09/08/2 021 Frequency of Binge Drinking Not on file 01/2021 Overall Financial Resource Strain (CARDIA) Answe r Date Recorded How hard is it for you to pa y for the very basics like food, housing, medical care, and heating? Very hard 03/05/2021 PHQ-2 Answer Date Recorded PHQ-2 Total Score 0 11/07/2020 [facility] - Occupational Stress Questionnaire Answer Date Recorded Do you feel stress - tense, restless, nervous, or anxious, or unable to sleep at night because your mind is troubled all the time - these days? Very much 03/05/2021 Exercise Vital Sign Answer Date Recorde d On average, how many days pe r week do you engage in moderate to strenuous exercise (like a brisk walk)? 0 days 03/05/2021 On average, how many minutes do you engage in exercise at this level? 0 min 03/05/2021 Hunger Vital Sign Answer Date Recorded Within the past 12 months, y ou worried that your food would run out before you got the money to buy more. Sometimes true Within the past 12 months, t he food you bought just didn't last and you didn't have money to get more. Sometimes true 01/2021 PRAPARE - Transportation Answer Date Re corded In the past 12 months, has l ack of transportation kept you from medical appointments or from getting medications? No 01/2021 In the past 12 months, has l ack of transportation kept you from meetings, work, or from getting things needed for daily living? No 03/05/2021 Sex and Gender Information Value Date Recorded Sex Assigned at Not on file Legal Sex Male 5:21 PM EDT Gender Identity Not on file Sexual Orientation Not on file Obstetrics History Last Filed Vital Signs Vital Sign Reading Time Taken Comments Blood Pressure 132/80 05/28/2021 8:23 AM EST Pulse 97 05/28/2021 8:23 AM EST Temperature 36.8 C (98.2 F) 05/28/2021 8:23 AM EST Respiratory Rate 16 03/05/2021 8:46 AM EDT Oxygen Saturation 97% 05/28/2021 8:23 AM EST Inhaled Oxygen Concentration - - Weight 143.3 kg (316 lb) 05/28/2021 8:23 AM EST Height 167.6 cm (5' 6 ) 05/28/2021 8:23 AM EST Body Mass Index 51 05/28/2021 8:23 AM EST Plan of Treatment Health Maintenance Due Date Last Done Comments Annual Wellness Exam 1973 Kidney Health: uACR 1980 Hepatitis B Vaccine (1 of 3 - 19+ 3-dose series) 1989 Cologuard 10/08/2015 Colon Cancer Screening 10/08/2015 Colonoscopy 10/08/2015 FIT 10/08/2015 Sigmoidoscopy 10/08/2015 Virtual Colonography 10/08/2015 Low Dose Lung Cancer Screening 2020 11/24/2015 Pneumococcal Vaccine 50+ (1 of 1 - PCV) 2020 Zoster (1 of 2) 2020 Hemoglobin A1c 09/02/2021 03/05/2021, 09/26, 01/29/2020, Additional history exists Kidney Health: eGFR 10/08/2021 10/08/2020, 03/15/2020, 01/24/2020, Additional history exists Lipids 10/08/2021 10/08/2020, 12/02/2019, 11/01/2018, Additional history exists Diabetic Eye Exam 11/07/2022 11/07/2020 COVID-19 Vaccine ( season) 2024 Influenza Vaccine (#1) 2025 7 (Declined), 09/17/2016 (Declined), 08/13/2015 (Declined), Additional history exists DTaP/TDaP/Td (3 - Td or Tdap) 07/28/2033 07/28/2023, 09/16/2017, 02/05/2009 Meningococcal B Vaccine Aged Out No l onger eligible based on patient's age to complete this topic Goals Goal Patient Goal Type Associated Problems Recent Progress Patient-Stated? Author Blood Pressure < 140/90 Blood Pressure 132/80(2020 8:23 AM EST) No Elena Lal CCMA Eat better, exercise, reach an ideal body weight General No Juli Ceja, SARITA BMI (Calculated) < 30 General 51.1(12/01/20 21 8:23 AM EST) No Lindsay Dent, RMOj Stay Tobacco Free Lifestyle No Juli Ceja, RMOj HEMOGLOBIN A1C < 7.0 Result Component 8.2( 9:03 AM EDT) No Iris Fields LPN Procedures Procedure Name Priority Date/Time Associated Diagnosis Comments POCT GLYCATED HEMOGLOBIN, TOTAL Routine 03/05/2021 9:03 AM EDT Type 2 diabetes mellitus with hyperglycemia, without long-term current use of insulin (HCC) COMPREHENSIVE METABOLIC PANEL Routine 10/08/2020 9:20 AM EDT Essential hypertension, benign LIPID PANEL REFLEX Routine 10/08/2020 9: 20 AM EDT Hyperlipidemia with target LDL less than 100 CT ANGIOGRAM CHEST W CONTRAST STAT 11/24/2015 12:15 AM EDT from Last 3 Months or Most Recently Relevant to Health Maintenance Results * (ABNORMAL) POCT GLYCATED HEMOGLOBIN, TOTAL (03/05/2021 9:03 AM EDT) Hemoglobin A1C 8.2(A) 4 - 6 % SEP OFFICE Lot Number SEP OFFICE Expiration Date SEP OFFICE SeriAl # SEP OFFICE 03/05/2021 9:03 AM EDT Luciano Cast MD POINT OF CARE TEST ORDER SANJUANA Final Result SEP OFFICE * (ABNORMAL) LIPID PANEL REFLEX (10/08/2020 9:20 AM EDT) Cholesterol 145 <200 mg/dL 10/08/2020 3:17 PM EDT [facility] Comment: < 200 Desirable 200 - 239 Borderline High >= 240 High Triglyceride 218(H) <150 mg/dL 10/08/2020 3:17 PM EDT [facility] Comment: < 150 Normal 150 - 199 Borderline High 200 - 499 High >= 500 Very High HDL 33(L) >=40 mg/dL 10/08/2020 3:17 PM EDT [facility] Comment: > 60 Optimal 40 - 60 Acceptable < 40 Low LDL Direct 76 <100 mg/dL 10/08/2020 3:17 PM EDT [facility] Non-HDL-C Calculated 112 <=129 mg/dL 10/08/2020 3:17 PM EDT [facility] Comment: <130 Desirable 130-159 Above Desirable 160-189 Borderline High 190-219 High >= 220 Very High Fasting Specimen? Yes None 021 3:17 PM EDT [facility] Blood Venipuncture / Unknown 10/08/2020 9:20 AM EDT 10/08/2020 9:20 AM EDT us Chacho Gilman MD CHEMISTRY ORDERABLES Final Resu lt [facility] [address] [place] [address] [facility] [address] [place] [id number] * (ABNORMAL) COMPREHENSIVE METABOLIC PANEL (10/08/2020 9:20 AM EDT) Sodium 136 136 - 145 mmol/L 10/08/2020 2:54 PM EDT [facility] Potassium 5.0 3.5 - 5.0 mmol/L 10/08/2020 2:54 PM EDT [facility] Chloride 99 98 - 107 mmol/L 10/08/2020 2:54 PM EDT [facility] Total CO2 24 22 - 29 mmol/L 10/08/2020 2:54 PM EDT [facility] Anion Gap 13 7 - 16 mmol/L 10/08/2020 2:54 PM EDT [facility] Calcium 9.9 8.6 - 10.4 mg/dL 10/08/2020 2:54 PM EDT [facility] Glucose Lvl 382(H) 74 - 100 mg/dL 10/08/2020 2:54 PM EDT [facility] BUN 11 6 - 20 mg/dL 10/08/2020 2:54 PM EDT [facility] Creatinine 0.74 0.67 - 1.30 mg/dL 10/08/2020 2:54 PM EDT [facility] Albumin 4.3 3.5 - 5.2 gm/dL 10/08/2020 2:54 PM EDT [facility] Total Protein 7.2 6.4 - 8.3 gm/dL 10/08/2020 2:[address] [facility] Bili Total 0.5 0.1 - 1.4 mg/dL 10/08/2020 2:54 PM EDT [facility] ALT 85(H) <=41 U/L 10/08/2020 2:54 PM EDT [facility] AST 52(H) <=40 U/L 10/08/2020 2:[address] [facility] Alk Phos 111 40 - 129 U/L 10/08/2020 2:54 PM EDT [facility] GFR Afr Am 124 >=60 mL/min/1.7 3 m2 10/08/2020 2:54 PM EDT [facility] GFR Non Afr Am 108 >=60 mL/min/1.7 3 m2 10/08/2020 2:54 PM EDT [facility] Comment: This estimated GFR was calculated using CKD-EPI equation which is modified based on ethnicity for Non Americans and Americans. Both results are reported since it is not always possible to determine the patient's ethnicity. This equation should only be used for individuals 18 and older. It has not been validated for use with the elderly (>70 years), women, or in some racial or ethnic subgroups, such as Hispanics. The equation will be less accurate in people with differences in nutritional status or muscle mass. Blood Venipuncture / Unknown 10/08/2020 9:20 AM EDT 10/08/2020 9:20 AM EDT us Chacho Gilman MD CHEMISTRY ORDERABLES Final Resu lt [facility] [address], [address] [place] [id number] [facility] [address] [place] [address] * CT ANGIOGRAM CHEST W CONTRAST (11/24/2015 12:15 AM EDT) Anatomical Region Laterality Modality Chest Computed Tomogra phy 11/24/2015 12:1 5 AM EDT Impressions 11/24/2015 12:35 AM EDT IMPRESSION: No PE. No acute abnormality. Fatty liver. Narrative 11/24/2015 12:[address] ANGIOGRAM CHEST, 11/24/2015 12:15 AM HISTORY: -SHORTNESS OF BREATH. D-dimer test 301. IMAGING PARAMETERS: Thin section spiral CT performed from the thoracic inlet through the lung bases following the intravenous administration of 75 ml Isovue 370. Sagittal and coronal reconstructions were performed. Coronal MIP reconstructions were also performed. Dr. Ocampo reviewed the study on a [employer] workstation and 3-D reconstructions and MIP reconstructions and multiple curved planar reconstructions were performed and these reconstructions were saved back to PACS. Automated exposure modulation for dose reduction. DISCUSSION: Comparison with this evening's chest radiograph. No comparison chest CT available. There is excellent opacification of the pulmonary arterial tree without filling defect to suggest PE. Slight atherosclerotic calcification thoracic aorta without aneurysm or dissection. Mild calcification at the origins of the left subclavian artery and innominate artery neither causing stenosis. Several scattered small calcified granulomas. Two tiny adjacent groundglass nodules anterior aspect right midlung with the larger measuring about 4 mm and the smaller about 3 mm. Lungs otherwise clear. No mass or adenopathy. No pleural or pericardial effusion. Fatty infiltration liver. Included subdiaphragmatic viscera otherwise unremarkable. Procedure Note Yogi Ocampo MD - 11/24/2015 CT ANGIOGRAM CHEST, 11/24/2015 12:15 AM HISTORY: -SHORTNESS OF BREATH. D-dimer test 301. IMAGING PARAMETERS: Thin section spiral CT performed from the thoracicinlet through the lung bases following the intravenous administration of 75 mlIsovue 370. Sagittal and coronal reconstructions were performed. Coronal MIP reconstructions were also performed. Dr. Ocampo reviewed the study on [email or web address] workstation and 3-D reconstructions and MIP reconstructions and multiplecurved planar reconstructions were performed and these reconstructions were savedback to PACS. Automated exposure modulation for dose reduction. DISCUSSION: Comparison with this evening's chest radiograph. No comparisonchest CT available. There is excellent opacification of the pulmonary arterialtree without filling defect to suggest PE. Slight atheroscleroticcalcification thoracic aorta without aneurysm or dissection. Mild calcification at theorigins of the left subclavian artery and innominate artery neither causingstenosis. Several scattered small calcified granulomas. Two tiny adjacentgroundglass nodules anterior aspect right midlung with the larger measuring about 4 mmand the smaller about 3 mm. Lungs otherwise clear. No mass or adenopathy. Nopleural or pericardial effusion. Fatty infiltration liver. Includedsubdiaphragmatic viscera otherwise unremarkable. IMPRESSION: No PE. No acute abnormality. Fatty liver. us Lydia Galindo MD IMG CT ORDERABLES Final Resu lt from Last 3 Months or Most Recently Relevant to Health Maintenance Insurance [employer]My[employer] OR MDR [employer] OR MDR * Guarantor: Ovidio Spann Account Type Relation to Patient Date of Phone Billing Address [place] Personal Family Self
--- OUTSIDE RECORDS SUMMARY | 2025-01-01 10:03 | XMS_ITS | Encounter Summary ---
Author Organization [place] [address] Care Team Providers Care Manager User Experience Name Role Phone Unavailable Primary Care Provider Unavailabl e Reason for Visit * Reason Comments Medication Refill Encounter Details Date Type Department Care Team (Late st Contact Info) Description 12/08/2024 Refill [facility] [address] [place] [address] Chacho Gilman MD [address] [place] [address] Medication Refill Social History Tobacco Use Types Packs/Day Years Used Date Smoking Tobacco: Every Day Cigarettes 3 41.5 Started: 06/28/1983 Smokeless Tobacco: Never Comments:1-3 pks per day Alcohol Use Standard Drinks/Week Comments No 0 (1 standard drink = 0.6 oz pur e alcohol) AUDIT-C Answer Date Recorded Q1: How often do you have a drink containing alc ohol? Never 03/05/2021 Average Number of Drinks Not on file 021 Frequency of Binge Drinking Not on file 01/2021 Overall Financial Resource Strain (CARDIA) Answe r Date Recorded How hard is it for you to pa y for the very basics like food, housing, medical care, and heating? Very hard 03/05/2021 PHQ-2 Answer Date Recorded PHQ-2 Total Score 0 11/07/2020 [facility] - Occupational Stress [...] on file Sexual Orientation Not on file documented as of this encounter Functional Status * Is the person deaf or does he/she have serious difficulty hearing? Answer Date of Assessment Author No 11/07/2020 8:10 AM Lindsay Monk RMA * Is the person blind or does he/she have serious difficulty seeing even when wearing glasses? Answer Date of Assessment Author No 11/07/2020 8:10 AM Lindsay Monk RMA * Does this person have serious difficulty walking or climbing stairs? Answer Date of Assessment Author No 11/07/2020 8:10 AM Lindsay Monk RMA * Does this person have difficulty dressing or bathing? Answer Date of Assessment Author No 11/07/2020 8:10 AM Lindsay Monk RMA * Because of a physical, mental or emotional condition, does this person have difficulty doing errands alone such as visiting a doctor's office or shopping? Answer Date of Assessment Author No 11/07/2020 8:10 AM Lindsay Monk RMA documented as of this encounter Mental Status * Because of a physical, mental or emotional condition, does this person have serious difficulty concentrating, remembering or making decisions? Answer Entry Date Author No 11/07/2020 8:10 AM EDT Lindsay Dent RMA documented in this encounter Plan of Treatment Not on file documented as of this encounter Goals Goal Patient Goal Type Associated Problems Recent Progress Patient-Stated? Author Blood Pressure < 140/90 Blood Pressure 132/80(2020 8:23 AM EST) No Elena Lal CCMA Eat better, exercise, reach an ideal body weight General No Juli Ceja RMA BMI (Calculated) < 30 General 51.1(05/28/20 8:23 AM EST) No Lindsay Dent RMA Stay Tobacco Free Lifestyle No Juli Ceja RMA HEMOGLOBIN A1C < 7.0 Result Component 8.2( 9:03 AM EDT) No Iris Fields LPN documented as of this encounter Visit Diagnoses Diagnosis Type 2 diabetes mellitus with hyperglycemia, without long-term current use of insulin (HCC) documented in this encounter
== END 2024-12-28 23:59 | disposition home or self-care (01) ==
LOC: LAB.DROPOF 01-01 09:52
PROVIDERS: PCP Nurse Practitioner Family; Visit Provider Nurse Practitioner Family
DX: Z12.5 Encounter for screening for malignant neoplasm of prostate (principal); Z11.59 Encounter for screening for other viral diseases; E11.9 Type 2 diabetes mellitus without complications; E78.2 Mixed hyperlipidemia; I10 Essential (primary) hypertension; M54.30 Sciatica, unspecified side; M54.16 Radiculopathy, lumbar region; Z79.4 Long term (current) use of insulin
CPT/HCPCS: 80053; 80061; 82043; 82570; 83036; 84436; 84443; 85025; 86803; 87340; 87389; G0103

== ENCOUNTER 2025-01-29 07:24 | Outpatient (CLI) | payer MEDICAID, SELFPAY ==
--- OUTSIDE RECORDS SUMMARY | 2025-01-29 07:27 | XMS_ITS | Clinical Summary ---
[facility] Address [address] [place] [address] Care Team Providers Care Mechanical Engineering Officer Name Role Phone Chacho Gilman MD Primary Care Provider + Social History Tobacco Use Types Packs/Day Years Used Date Smoking Tobacco: Never Assessed Abuse Screen Answer Date Recorded Unsafe at Home or Work/School Not on file Feels Threatened by Someone? Not on file 05/2023 Does Anyone Keep You from Co ntacting Others or Doint Things Outside the Home? Not on file 04/08/2023 Physical Sign of Abuse Present Not on file 1 Housing Stability Answer Date Recorded Current Living Arrangements Not on file 03/28 Potentially Unsafe Housing Conditions Not on moreno e 04/08/2023 Family and Community Support Answer Paulino e Recorded Help with Day-to-Day Activities Not on file 04/08/2023 Lonely or Isolated Not on file 04/08/2023 Employment Answer Date Recorded Do you want help finding or keeping work or a roopa b? Not on file 04/08/2023 Disabilities Answer Date Recorded Concentrating, Remembering, or Making Decisions Difficulty Not on file 04/08/2023 Doing Errands Independently Difficulty Not on fi le 04/08/2023 Education Answer Date Recorded Help with school or training? Not on file Preferred Language Not on file 04/08/2023 Sex and Gender Information Value Date Recorded Sex Assigned at Not on file Legal Sex Male 2:11 PM EST Gender Identity Not on file Sexual Orientation Not on file Plan of Treatment Health Maintenance Due Date Last Done Comments ANNUAL PHYSICAL 1970 HEPATITIS C SCREENING 1970 COLOGUARD 10/08/2015 COLON CANCER SCREENING 5 YEA R SIGMOIDOSCOPY 10/08/2015 COLONOSCOPY 10/08/2015 COLORECTAL CANCER SCREENING 10/08/2015 CT COLONOGRAPHY 10/08/2015 FECAL OCCULT BLOOD TEST 10/08/2015 FIT Testing (1 year) 10/08/2015 Pneumococcal Vaccine 50+ (1 of 1 - PCV) 2020 ZOSTER VACCINE (1 of 2) 2020 COVID-19 Vaccine (1 - 2023-2 5 season) 2024 INFLUENZA VACCINE 03/28/2025 TDAP/TD VACCINES (3 - Td or Tdap) 09/17/2027 018, 02/05/2009 HEMOGLOBIN A1C Discontinued 01/29/2020, 12/0 02/2019, 11/01/2018, Additional history exists URINE MICROALBUMIN-CREATININ E RATIO (uACR) Discontinued 01/29/2020 Insurance [employer] [place]ICA[place] Care Teams Mechanical Engineering Officer Relationship Specialty Start Date End Date [place] [address] PCP - General Internal Medicine 06/12/20
--- NOTE | 2025-01-29 07:30 | CT_ITS ---
FINAL REPORT TECHNIQUE: Thin section axial images were obtained from the lung apices to the upper abdomen by computed tomography. Reformatted images were obtained and reviewed. This study was performed with techniques to keep radiation doses al low as reasonably achievable (ALARA). Individualized dose reduction techniques using automated exposure control or adjustment of mA and/or kV according to the patient's size were employed. CLINICAL HISTORY: lung cancer screening current smoker 2 ppd x 40 yrs DLP 106.55 COMPARISON: None FINDINGS: CHEST CT LOW DOSE 54-year-old male, current smoker, 30-[id number] history. CTDI vol (mGy): 2.90 DLP (mGy-cm): 106.55 There is no axillary adenopathy. There is no mediastinal or hilar mass or adenopathy. The heart is normal in size. There is no pericardial or pleural effusion. Lung window images demonstrate a 4 mm nodule in the posteromedial right upper lobe, best seen on image #27 of series 4. Limited images of the upper abdomen are unremarkable. IMPRESSION: Lung-RADS category 2. Recommend 12 month follow up low dose chest CT. Reviewed, Interpreted and Dictated by Best Sosa MD Transcribed by Jennifer Moore Authenticated and [facility]
== END 2025-01-29 23:59 | disposition home or self-care (01) ==
LOC: RAD 07:25
PROVIDERS: PCP Nurse Practitioner Family; Visit Provider Nurse Practitioner Family
DX: Z12.2 Encounter for screening for malignant neoplasm of respiratory organs (principal); R91.1 Solitary pulmonary nodule; F17.210 Nicotine dependence, cigarettes, uncomplicated; R06.02 Shortness of breath
CPT/HCPCS: 71271; 94060; 94618; 94726; 94729

== ENCOUNTER 2025-05-29 12:29 | Emergency (ER) | payer MEDICAID, SELFPAY ==
[2025-05-29] VITALS (7 sets, daily range): BP systolic 125–151; BP diastolic 85–94; PULSE 93–107; RESP 15; TEMP 36.8–37; O2SAT 97–99; BMI 43.5
--- OUTSIDE RECORDS SUMMARY | 2025-05-29 12:37 | XMS_ITS | Clinical Summary ---
[facility] Address [address] [place] [address] Care Team Providers Care Livestock Farmer Name Role Phone Chacho Gilman MD Primary [...] 2020 ZOSTER VACCINE (1 of 2) 2020 INFLUENZA VACCINE 01/26/2025 TDAP/TD VACCINES (2 - Td or Tdap) 09/17/2027 018, 02/05/2009 HEMOGLOBIN A1C Discontinued 01/29/2020, 12/0 02/2019, 11/01/2018, Additional history exists URINE MICROALBUMIN-CREATININ E RATIO (uACR) Discontinued 01/29/2020 Insurance [employer] [place] Care Teams Livestock Farmer Relationship Specialty Start Date End Date Chacho [place] [address] PCP - General Internal Medicine 06/12/20
--- OUTSIDE RECORDS SUMMARY | 2025-05-29 12:37 | XMS_ITS | Clinical Summary ---
Author Organization [facility] Address [address] [place] [address] Phone Care Team Providers Care License Issuer Name Role Phone Shantelle TEMPLE, Carlos Blandon [phone] Conditions or Problems Problem Name Problem Code Onset Date Status Entry Date Provider Comment Standard Description Annotate Take Note of HEADACHE 52537237 (SNOMED CT) 11/28 Active 11/28 Arlene Dreyling MA Headache Take Note of SYMPTOM, MEMORY LOSS 05657516 (SNOMED CT) 11/28 Active 11/28 Arlene Dreyling MA Amnesia Take Note of SOB 198940857 (SNOMED CT) 11/28 Active 11/28 Arlene Dreyling MA Dyspnea Take Note of ANXIETY DEPRESSION 589516580 (SNOMED CT) 11/28 Active 11/28 Arlene Dreyling MA Mixed anxiety and depressive disorder Take Note of HYPERCHOLESTE ROLEMIA 08544274 (SNOMED CT) 11/28 Active 11/28 Arlene Dreyling MA Hypercholesterole melony Take Note of ARRHYTHMIA, HX OF 194053189 (SNOMED CT) 11/28 Active 11/28 Arlene Dreyling MA H/O: heart disorder Take Note of HYPERTRIGLYCE RIDEMIA 885366337 (SNOMED CT) 11/28 Active 11/28 Arlene Dreyling MA Hypertriglyceride melony NECK PAIN 64905497 (SNOMED CT) 11/23 Active 11/23 Arlene Dreyling MA Neck pain OBESITY 654950610 (SNOMED CT) 11/23 Active 11/23 Edwin Pancho DENTAL LABORATORY TECHNICIAN Obesity HERNIATED LUMBAR DISC 979976036 (SNOMED CT) 11/23 Active 11/23 Edwin Pancho DENTAL LABORATORY TECHNICIAN Prolapsed lumbar intervertebral disc NECK PAIN 70100880 (SNOMED CT) 11/23 Active 11/23 [facility] DENTAL LABORATORY TECHNICIAN Neck pain BACK PAIN, LUMBAR 726586285 (SNOMED CT) 11/23 Active 11/23 [facility] DENTAL LABORATORY TECHNICIAN Low back pain Medications Medication Instructions Start Date Stop Date Generic Name ND Provider SHA TBEC 3 DICLOFENAC SODIUM TBEC 26441732482 Arlene Dreyling MA FLEXERIL TABS Non-Garcia 3 CYCLOBENZAPRINE HCL TABS 77561520837 Arlene Dreyling MA LORCET PLUS 7.5-650 MG ORAL TABLET -Garcia 3 HYDROCODONE-ACETAM INOPHEN 54583951546 Arlene Dreyling MA DEPAKOTE ER [id number] 3 DIVALPROEX SODIUM TB24 [id number] Arlene Dreyling MA ATIVAN TABS [facility] [place]-Garcia 3 LORAZEPAM TABS [id number] Arlene Dreyling MA FLEXERIL 10 MG TABS 1 po tid 9 CYCLOBENZAPRINE HCL [id number] [facility] DENTAL LABORATORY TECHNICIAN Medications Administered No information available. Allergies, Adverse [...]
--- NOTE | 2025-05-29 12:42 | ED_ITS ---
<Statement entered by J Carlos Dillard MD - 05/29/25 15:32> I independently interpreted the hip plain film to demonstrate no fracture or dislocation. I independently interpret the cross-sectional imaging to demonstrate no fracture or dislocation additionally. I was consulted by the BRIAN, and we discussed the complexity of problems being addressed. I approved the treatment and management plan for this patient's care in the emergency department, thus performing a substantial portion of the medical decision making. J Carlos Dillard MD Discharge Plan Disposition Patient Disposition: Home, Self-Care Condition: Good Prescriptions Prescriptions: New methocarbamol 750 mg tablet 750 mg PO HS Qty: 14 0RF No Action fluticasone propionate 50 mcg/actuation spray,suspension 1 spray intranasal DAILY PRN Rx Instructions: administer into each nostril (DME) lancets 30 gauge misc See Rx Instructions .ROUTE .MEDSUPPLY Qty: 200 3RF Rx Instructions: Twice daily (DME) Blood Glucose Test Strip See Rx Instructions .MEDSUPPLY Qty: 150 3RF Rx Instructions: As directed metformin 1,000 mg tablet See Rx Instructions .ROUTE .COMPLEX Qty: 180 2RF Dose Instruction: Take 1 tablet by mouth twice a day for Diabetes Rx Instructions: Take 1 tablet by mouth twice a day for Diabetes lisinopril 2.5 mg tablet 2.5 mg PO DAILY Qty: 90 2RF Ozempic 0.25 mg or 0.5 mg (2 mg/3 mL) pen injector 0.25 mg SQ QWEEK Qty: 3 2RF Rx Instructions: for 4 weeks (DME) blood-glucose meter [FreeStyle Precision Chris Meter] Misc See Rx Instructions .Route Qty: 1 0RF Rx Instructions: twice daily (DME) FreeStyle Precision Chris Strips Strip See Rx Instructions .Route Qty: 100 2RF Rx Instructions: twice daily (DME) lancets 30 gauge misc See Rx Instructions .ROUTE .MEDSUPPLY Qty: 100 2RF Rx Instructions: twice daily omeprazole 20 mg capsule,delayed release(DR/EC) See Rx Instructions .ROUTE .COMPLEX Qty: 90 2RF Dose Instruction: TAKE 1 CAPSULE BY MOUTH DAILY FOR GERD Rx Instructions: TAKE 1 CAPSULE BY MOUTH DAILY FOR GERD glimepiride 2 mg tablet See Rx Instructions .ROUTE .COMPLEX Qty: 90 0RF Dose Instruction: Take 1 Tablet by mouth once daily. Rx Instructions: Take 1 Tablet by mouth once daily. rosuvastatin 20 mg tablet 20 mg PO DAILY Qty: 90 0RF amitriptyline 75 mg tablet 75 mg PO HS Qty: 90 0RF furosemide 80 mg tablet See Rx Instructions .ROUTE .COMPLEX Qty: 90 0RF Dose Instruction: Take 1 Tablet by mouth once daily for fluid. Rx Instructions: Take 1 Tablet by mouth once daily for fluid. tramadol 50 mg tablet 50 mg PO BID PRN (Reason: pain) Qty: 28 0RF Referrals Follow up/Referrals: Tashi Christie APRN [Primary Care Provider, Family Practice] - See instructions Activity Restrictions/Add. Instructions Additional Instructions/Restrictions: Please return to the emergency department with any worsening signs or symptoms. I recommend anti-inflammatory medications ice rest as needed for symptomatic relief. Please follow-up with your PCP in the upcoming days/weeks, could cons ider trial of physical therapy or MRI of your hip/spine if your pain and symptoms persist greater than 1 to 2 weeks, please use muscle relaxer as needed please take all your other medications as prescribed at home. Clinical Impressions Clinical Impression: Strain of left hip, Lumbar degenerative disc disease, Lumbosacral strain Instructions Patient Instructions: DI for Back Strain or Sprain, DI for Hip Pain Print Language Print Language: Tamazight Discharge ED Provider: J Carlos Dillard Adult HPI General Chief complaint: PAIN Stated complaint: AO 05/27 fell, inj left hip Time Seen by Provider: 05/29/25 12:32 Mode of Arrival: Wheelchair Source of Information: Patient Description of Symptoms (Recalled from ER Triage Doc. by RN): patient states 2 days ago he was working on floor and fell through the floor, landing on his left hip. he initially didnt have pain but does today. 9/10 constant pain. denies hitting head, denies LOC History of Present Illness HPI narrative: 54-year-old male presents to the emergency department with left hip pain and lower back pain after a fall that happened 2 days ago, patient states he was working on his floor , when he missed the board and fell to the floor , patient states initially did not have much pain, but pain started today, no radicular type symptomatology, no numbness or tingling, no upper or lower extremity weakness, patient has some pain limited range of motion/difficulty with ambulation but is able to ambulate on the affected extremity, patient [place] any saddle anesthesia, denies any urinary bladder or bowel dysfunction, denies any fever chills chest pain shortness of breath nausea vomiting constipation diarrhea no abdominal type symptomatology, no urinary symptomatology, denies any other upper or lower extremity injury, denies striking the head, denies any LOC, denies any presyncopal or syncopal event. Patient is a current everyday smoker denies any alcohol or drug use. Other past medical history is consistent with degenerative disc disease of the spine, T2DM, hyperlipidemia, hypertension, BPH, GERD. Of note patient states he took some amitriptyline , for his symptoms and provided little to no relief. Initial triage vitals are unremarkable. Please note that above description of symptoms, in this electronic medical record under categorization of recalled from ER triage doctor by RN are reflective of an initial nursing assessment, however, is not reflective of my full history and physical exam that was personally taken and clarified. Consequentially, this preceding description of symptoms, which may include the patient's categorized chief complaint in the EMR, do not reflect my personal clinical impression, and the ultimate description of history of present illness and patient stated complaints should be deferred to this section of the note. Unless stated otherwise or congruent with this section of the note, additional signs, symptoms, or incongruence should be interpreted as inaccurate with my clinical impression. Onset (ago): day(s) Related Data Home Medications ?Medication ?Instructions ?Recorded ?Confirmed fluticasone propionate 50 1 spray intranasal DAILY PRN 12/28/24 04/03/25 mcg/actuation nasal spray,suspension Previous Rx's ?Medication ?Instructions ?Recorded tramadol 50 mg tablet 50 mg PO BID PRN pain #28 ta bs 08/20/23 blood sugar diagnostic (Blood #150 ea 12/28/24 Glucose Test strips) lancets 30 gauge #200 ea 12/28/24 lisinopril 2.5 mg tablet 2.5 mg PO DAILY #90 tabs 09/19 metformin 1,000 mg tablet See Rx Instructions .Route 0 12/28/24 .COMPLEX #180 tabs semaglutide 0.25 mg or 0.5 mg (2 0.25 mg (0.368 mL) SQ QWEEK #3 mL 01/03/25 mg/3 mL) subcutaneous pen injector (Ozempic) blood sugar diagnostic (FreeStyle #100 ea 03/02/25 Precision Chris Strips) blood-glucose meter (FreeStyle #1 ea 03/02/25 Precision Chris Meter) lancets 30 gauge #100 ea 03/02/25 omeprazole 20 mg capsule,delayed See Rx Instructions . Route 03/28/25 release .COMPLEX #90 caps glimepiride 2 mg tablet See Rx Instructions .Route 1 .COMPLEX #90 tabs rosuvastatin 20 mg tablet 20 mg PO DAILY #90 tabs 04/29 07/22 amitriptyline 75 mg tablet 75 mg PO HS #90 tabs furosemide 80 mg tablet See Rx Instructions .Route 1 07/29/24 .COMPLEX #90 tabs methocarbamol 750 mg tablet 750 mg PO HS #14 tabs 08/22 Allergies Allergy/AdvReac Type Severity Reaction Status Date / Time oxaprozin (From Daypro) Allergy Unknown Verified 04/03/25 11:22 allergy reaction methylprednisolone (From AdvReac Unknown Verified 04/03/25 11:22 Solu-Medrol) allergy reaction PFSH PFS Disclaimer: The information contained in this section may have been updated after the patient was seen, as this information can be updated by other users. Medical History (Updated 05/29/25 @ 15:14 by JUNG Duong) Encounter for screening for malignant neoplasm of lung Tobacco abuse counseling Tobacco abuse Smoking greater than 30 pack years Dyspnea on exertion Pulmonary emphysema Lumbar degenerative disc disease BPH w/o urinary obs/LUTS Cervical disc disease Low back pain Shoulder pain, right Diastolic dysfunction Coronary artery disease Abscess Dyspnea Family history of heart disease Atypical angina Abnormal cardiovascular stress test Abscess of left thigh Diabetes mellitus Hyperlipidemia Hypertension Atypical chest pain Tobacco use Obesity Severe sepsis with acute organ dysfunction Groin abscess Surgical History H/O cardiac catheterization History of repair of anterior cruciate ligament of right knee Right shoulder pain History of hernia repair Abscess of groin, left Family History Other Cancer Diabetes Hyperlipidemia Hypertension Social History Smoking Status: Current every day smoker tobacco type: cigarettes packs per day: 1 alcohol intake: never substance use type: denies use current occupational status: other Travel in the last 8 weeks?: None housing: house caffeine: Yes Have you lived/traveled outside US in past 30 days?: No Contact w/someone who lives/traveled outside US past 30 days?: No Exposure to someone with infectious disease in past 14 days?: No Do you have a fever (greater than 100.4 F or 38 C)?: No Have you tested positive for COVID-19?: No Exposed to someone with COVID-19 in past 14 days?: No Do you have a sore throat?: No Do you have a cough?: No Do you have any weakness?: No Do you have any diarrhea?: No Are you experiencing any unusual bleeding?: No Do you have any muscle aches/pain?: No Do you have any abdominal pain?: No Are you experiencing loss of taste or smell?: No Other Medical History Have you received the Flu Vaccine for this season: No Have you received the Pneumonia Vaccine: No ROS Obtained: Yes All systems reviewed & no additional complaints except as documented Physical Exam General General appearance: alert and in no apparent distress Head Head exam: atraumatic and normocephalic Eye Eye exam: Present PERRL and EOMI ENT ENT exam: Present mucous membranes moist Neck Neck exam: Present normal inspection Chest Chest inspection: Present normal inspection and symmetric chest wall rise; Absent tenderness Respiratory Respiratory exam: Present normal lung sounds bilaterally; Absent respiratory distress Cardiovascular Cardiovascular exam: Present regular rate and normal rhythm Abdominal Exam Abdominal exam: Present soft; Absent tenderness, guarding, rebound or rigidity Extremities Exam Extremities exam: Present normal inspection, tenderness and other (Pain to palpation to the lateral aspect of the left hip joint, patient moves extremity to command with some pain limited range of motion, good flexion extension, good internal and external rotation, no real intrinsic hip dysfunction, no obvious acute traumatic dislocation deformity or acute open fra); Absent full ROM Back Exam Back exam: Present normal inspection, tenderness and paraspinal tenderness; Absent vertebral tenderness Comment: There is mild paraspinal tenderness palpation to the lower lumbar spine, no real spinal tenderness to palpation Neurological Exam Neurological exam: Present alert, oriented X3 and other (5 out of 5 strength in the bilateral lower and upper extremities, no gross sensation to) Psychiatric Psychiatric exam: Present normal affect Skin Skin exam: Present warm and dry Medical Decision Making Medical Records Medical records reviewed: Yes I reviewed the patient's medical records. Screening: Per USPSTF and CDC recommendations, given the prevalence of disease in our region, it is our hospital?s policy to screen for HIV and viral Hepatitis for all patients aged 18 and over and those with ongoing risk factors. Otto Inquiry Pt receiving controlled substance: No Otto was queried for this patient: No Vital Signs: 05/29/25 12:37 05/29/25 12:37 05/29/25 13:00 Temperature 98.6 F Temperature Source Oral Pulse Rate 107 H 101 H Pulse Rate [Right Radial] 94 H Respiratory Rate 15 Blood Pressure 151/85 H 127/90 Blood Pressure [Right Arm] 151/85 H Blood Pressure Mean [Right Arm] 107 Blood Pressure Source [Right Arm] Automatic Cuff Blood Pressure Position [Right Arm] Supine 02 Sat by Pulse Oximetry 98 98 97 Oxygen Delivery Method Room Air Room Air Room Air 05/29/25 13:30 05/29/25 14:00 05/29/25 14:30 Temperature Temperature Source Pulse Rate 101 H 98 H 100 H Pulse Rate [Right Radial] Respiratory Rate Blood Pressure 147/92 H 129/94 H 136/91 H Blood Pressure [Right Arm] Blood Pressure Mean [Right Arm] Blood Pressure Source [Right Arm] Blood Pressure Position [Right Arm] 02 Sat by Pulse Oximetry 97 97 98 Oxygen Delivery Method Room Air Room Air Room Air Orders (Tests/Meds): ED MEDICATIONS Discontinued Medications Generic Name Dose Route Start Last Admin Trade Name Freq PRN Reason Stop Dose Admin Hydrocodone Bitart/Acetaminophen 1 tab 05/29/25 14:44 05/29/25 14:51 Hydrocodone/Apap 5/325 Mg Tablet PO 05/29/25 14:45 1 tab ONCE ONE Administration Ketorolac Tromethamine 15 mg 05/29/25 12:51 05/29/25 13:17 Ketorolac 15mg/Ml Vial IM 05/29/25 12:52 15 mg ONCE ONE Administration Lidocaine 1 each 05/29/25 12:57 05/29/25 13:16 Lidocaine 5% Transdermal Patch TD 05/29/25 12:58 1 each ONCE ONE Administration Methocarbamol 750 mg 05/29/25 12:57 05/29/25 13:16 Methocarbamol 500mg Tablet PO 05/29/25 12:58 750 mg ONCE ONE Administration ORDERS Category Date Time Status CT lumbar spine wo con Stat Cat Scan 05/29/25 12:58 Completed XR hip LT 2-3V w/pelvis Stat Exams 05/29/25 12:52 Completed Medical Decision Narrative: 54-year-old male presents the emergency department with a fall 2 days ago and injury/pain to his left hip and lower back, differential diagnose include but not limited to, degenerative disc disease of the spine, acute lumbar sacral strain, vertebral body fracture, hip fracture, hip sprain/strain, soft tissue injury, contusion among others. I discussed this patient's case with the attending physician Dr. Dillard Will obtain x-ray of the left hip and pelvis, CT lumbar spine without contrast, will give 15 mg IM Toradol Lidoderm patch and 750 mg p.o. methocarbamol for pain. Was notified by nursing staff at approximately 2:45 PM the patient still complaining of some pain, will give 5 mg p.o. Brodnax for pain. I reviewed the patient's left hip x-ray/pelvic x-ray along the corresponding radiologic report, no acute osteomy to the left hip. I reviewed the patient's CT lumbar spine without contrast on the corresponding radiologic report, degenerative disc disease without acute fracture grade I anterior spondylolisthesis of L5 on S1. Reexamination the patient approximately 3:10 PM, patient resting comfortably in bed, has no red flag signs or symptoms. Otherwise neurovascular neurologically intact, patient was given strict ED return precautions, most likely soft tissue injury, discussed all results with patient family bedside patient family in agreement with the current treatment plan/discharge plan. Patient will follow- up with PCP in the upcoming days. Could benefit from anti-inflammatory medications, will prescribe 750 mg p.o. methocarbamol as needed for symptomatic relief. Could also benefit from potential physical therapy/MRI of the lumbar spine/hip if pain and symptoms persist over the next few weeks patient once aga in voiced understanding and agreement with current treatment plan/discharge plan Critical Care Critical Care Time Critical Care Time: No
--- NOTE | 2025-05-29 12:52 | XR_ITS ---
FINAL REPORT CLINICAL HISTORY: Fall pain in left hip last week FINDINGS: An AP view of the pelvis and a frog leg view of the left hip were obtained. There is no prior exam for comparison. There is no acute fracture or dislocation. There is mild degenerative disease of the hips bilaterally. Remaining osseous pelvis is without acute abnormality. Soft tissues are unremarkable. IMPRESSION: No acute osseous abnormality of the left hip. Reviewed, Interpreted and Dictated by Purnima Rojo MD Transcribed by Zeina Blount Authenticated and [facility]
--- NOTE | 2025-05-29 12:58 | CT_ITS ---
FINAL REPORT TECHNIQUE: Thin section axial images were obtained through the lumbar spine without contrast. Sagittal and coronal reconstruction images were obtained from the axial data. Exam was performed using dose reduction techniques. CLINICAL HISTORY: Fall lower back pain COMPARISON: None FINDINGS: There is no acute fracture. Very mild grade 1 anterior spondylolisthesis is noted of L5 on S1. Alignment is otherwise normal. Vertebral body height is preserved. Multilevel degenerative disc disease is most pronounced in the lower lumbar spine. Limited evaluation of the paraspinal soft tissues demonstrates no acute abnormality. IMPRESSION: Degenerative disc disease without acute fracture. Grade 1 anterior spondylolisthesis of L5 on S1. Reviewed, Interpreted and Dictated by Purnima Rojo MD Transcribed by Zeina Blount Authenticated and [facility]
[2025-05-29] MEDS: METHOCARBAMOL 500MG TABLET 750 MG PO (13:16)
[2025-05-29] MEDS: LIDOCAINE 5% TRANSDERMAL PATCH 1 EACH TD (13:16)
[2025-05-29] MEDS: KETOROLAC 15MG/ML VIAL 15 MG IM (13:17)
[2025-05-29] MEDS: HYDROCODONE/APAP 5/325 MG TABLET 1 TAB PO (14:51)
== END 2025-05-29 15:19 | disposition home or self-care (01) ==
PROVIDERS: Emergency Provider Emergency Medicine; PCP Nurse Practitioner Family
DX: S76.012A Strain of muscle, fascia and tendon of left hip, initial encounter (principal); S39.012A Strain of muscle, fascia and tendon of lower back, initial encounter; M51.362 Other intervertebral disc degeneration, lumbar region with discogenic back pain and lower extremity pain; W19.XXXA Unspecified fall, initial encounter
CPT/HCPCS: 72131; 73502; 96372; 99284; J1885